=== PATIENT | male | born 1955 | race Caucasian/White ===

== ENCOUNTER 2019-01-21 18:17 | Inpatient (IN) | payer MEDICAID, SELFPAY ==
[~2019-01-21] VITALS: Ht 180.3 cm; Wt 92.7 kg
[2019-01-21 19:06] LABS: BASO # 0.1 10^3/uL (0.0-0.2); BASO % 0.8 % (0.0-1.0); EOS # 0.1 10^3/uL (0.0-0.50); EOS % 1.3 % (0.0-3.0); HEMATOCRIT 51.6 % (42.0-52.0); HEMOGLOBIN 17.2 g/dl (13.5-17.5); LYMPH # 1.4 10^3/uL (1.5-4.5); LYMPH % 19.7 % (24.0-44.0); MEAN CORPUSCULAR HEMOGLOBIN 30.1 pg (27.0-33.0); MEAN CORPUSCULAR HGB CONC 33.3 g/dl (32.0-36.5); MEAN CORPUSCULAR VOLUME 90.4 fl (80.0-96.0); MONO # 0.7 10^3/uL (0.0-0.8); NEUTROPHILS # 4.8 10^3/uL (1.8-7.7); NEUTROPHILS % 68.1 % (36.0-66.0); PLATELET COUNT, AUTOMATED 177 10^3/uL (150-450); RED BLOOD COUNT 5.71 10^6/uL (4.30-6.10); WHITE BLOOD COUNT 7.1 10^3/uL (4.0-10.0)
--- NOTE | 2019-01-21 19:08 | REP ---
Portable chest x-ray: Sitting AP view. History: Dyspnea and cough. No comparison study. Findings: EKG electrodes are seen. The heart is mildly to moderately enlarged. Pulmonary vasculature is slightly cephalized. There is slight blunting of the right lateral pleural angle. Fissural thickening is noted on the right. No infiltrate is seen. No evidence of pulmonary edema. Impression: Cardiomegaly with right pleural angle blunting and cephalization. CHF pattern. Electronically Signed by Alexsander Moscoso MD 01/21/2019 06:59 P
[2019-01-21] MEDS ORDERED: FUROSEMIDE 40 MG/4 ML VIAL (J1940) IV ONE (19:30)
[2019-01-21 19:36] LABS: INR 1.17; PROTHROMBIN TIME 14.6 SECONDS (11.8-14.0)
[2019-01-21 19:37] LABS: PARTIAL THROMBOPLASTIN TIME 29.7 SECONDS (25.0-38.4)
[2019-01-21 19:40] LABS: BLOOD UREA NITROGEN 23 MG/DL (7-18); CALCIUM LEVEL 9.3 MG/DL (8.8-10.2); CARBON DIOXIDE LEVEL 25 MEQ/L (21-32); CHLORIDE LEVEL 103 MEQ/L (98-107); CK-MB VALUE MASS 3.8 NG/ML (<3.6); CPK CREATINE PHOSPHOKINASE 148 U/L (39-308); CREATININE FOR GFR 1.12 MG/DL (0.70-1.30); GLOMERULAR FILTRATION RATE > 60.0 (>49); GLUCOSE, FASTING 105 MG/DL (70-100); MB/CK RELATIVE INDEX 2.57 (< OR =4); NT-PRO BNP 4077 PG/ML (<125); POTASSIUM SERUM 5.1 MEQ/L (3.5-5.1); SODIUM LEVEL 137 MEQ/L (136-145)
[2019-01-21] MEDS: METOPROLOL 5 MG/5 ML VIAL IV SCH ×3 (19:51→20:03)
--- NOTE | 2019-01-21 20:44 | REPVR ---
EXAM: US Duplex Bilateral Lower Extremity Veins EXAM DATE/TIME: 01/21/2019 7:48 PM CLINICAL HISTORY: 63 years old, male; Pain; Leg, upper; Bilateral; Additional info: Low ext edema R/O dvt TECHNIQUE: Imaging protocol: Real-time duplex ultrasound of the Bilateral Lower Extremities with 2-D rosenbaum scale, color Doppler flow and spectral waveform analysis with image documentation. Complete exam focused on the bilateral lower extremity veins. COMPARISON: No relevant prior studies available. FINDINGS: Right deep veins: Unremarkable. The common femoral, femoral, proximal profunda femoral and popliteal veins are patent without thrombus. Normal Doppler waveforms. Normal compressibility and/or augmentation response. Right superficial veins: Saphenofemoral junction is patent without thrombus. Left deep veins: Unremarkable. The common femoral, femoral, proximal profunda femoral and popliteal veins are patent without thrombus. Normal Doppler waveforms. Normal compressibility and/or augmentation response. Left superficial veins: Saphenofemoral junction is patent without thrombus. Soft tissues: Unremarkable. IMPRESSION: No evidence of deep venous thrombus in the bilateral lower extremities. Electronically signed by: Holly Mckeon On 01/21/2019 20:44:10 PM
[2019-01-21] MEDS ORDERED: MAALOX 30 ML SUSP *UDC PO PRN (21:00)
[2019-01-21] MEDS ORDERED: ACETAMINOPHEN TAB 650MG DOSE (2X325MG) PO PRN (21:00)
--- NOTE | 2019-01-21 21:13 | HPEPDOC ---
General Date of Admission 01/21/19 Date of Service: Jan 21, 2019 Attending Physician: KRISTEL WALLACE MD Chief Complaint The patient is a 63-year-old male admitted with a reason for visit of Fluid Rete ntion. Source: Patient, Other (. Girlfriend) Exam Limitations: No limitations Timing/Duration: Other (months) Severity: Moderate Associated Symptoms: Other History of Present Illness 63 years old, former with no known past medical history had never seen a doctor in the past, had developed increasing shortness of breath on exertion. Bilateral leg swelling and orthopnea since last few months, which is progressively getting worse. Patient denies chest pain, syncope or palpitations. Patient was found to have A. fib with RVR and acute heart failure, we were asked to admit patient for further workup Home Medications No Active Prescriptions or Reported Meds Allergies Coded Allergies: No Known Drug Allergies (Verified Allergy, Unknown, 01/21/19) Past Medical History Medical History None Surgical History None Social History * Smoker: Denies Alcohol: Denies Drugs: denies A-FIB/CHADSVASC A-FIB History Current/History of A-Fib/PAF?: Yes Current PO Anticoag Therapy: No Review of Systems Constitutional: Reports: Weakness Eyes: Denies: Pain, Vision change, Conjunctivae inflammation, Eyelid inflammation, Redness, Other ENT: Denies: Head Aches, Ear Pain, Dysphagia, Sinus Congestion, Post Nasal Drip, Sore Throat, Epistaxis, Other Symptoms Skin: Denies: Rash, Lesions, Jaundice, Bruising, Itching, Dry, Breakdown, Nail Changes, Other Pulmonary: Reports: Dyspnea, Other Symptoms (, orthopnea, dyspnea on exertion) Cardiovascular: Reports: Paroxysmal Noc. Dyspnea Gastrointestinal: Denies: Nausea, Vomiting, Abdominal Pain, Diarrhea, C onstipation, Melena, Hematochezia, Other Symptoms Genitourinary: Denies: Dysuria, Frequency, Incontinence, Hematuria, Retention, Other Symptoms Hematologic: Denies: Bruising, Bleeding Excessively, Petecchia, Purpura, Enlarged Lymph Nodes, Other Hematologic Endocrine: Denies: Polydipsia, Polyphagia, Polyuria, Heat Intolerance, Cold I ntolerance, Other Endocrine Sx Musculoskeletal: Denies: Neck Pain, Back Pain, Shoulder Pain, Arm Pain, Hand Pain, Leg Pain, Foot Pain, Joint Pain, Muscle Pain, Spasms, Other Symptoms Neurological: Denies: Weakness, Numbness, Incoordination, Change in speech, Confusion, Seizures, Other Symptoms Psych: Denies: Mood Normal, Anxiety, Depression, Memory Issues, Thoughts of Self Harm, Anger, Thoughts of Harming Other, Other Psych Physical Examination General Exam: Positive: Alert, Cooperative Eye Exam: Positive: PERRLA, Conjunctiva & lids normal ENT Exam: Positive: Atraumatic Neck Exam: Positive: Supple Chest Exam: Positive: Other (, bilateral crackles audible) Heart Exam: Positive: Tachycardic, Irregular Rhythm Telemetry: Positive: Atrial fibrillation Abdomen Exam: Positive: Normal bowel sounds, Soft Extremity Exam: Positive: Edema (. Bilateral pedal edema) Skin Exam: Negative: Nl turgor and temperature, Rash, Breakdown, Lesion, Pruritus, Other skin issue Neuro Exam: Negative: Normal Gait, Normal Speech, Strength at 5/5 X4 ext, Normal Tone, Sensation Intact, Cranial Nerves 3-12 NL, Reflexes 2+, Other Psych Exam: Negative: Mental status NL, Mood NL, Anxiety, Memory Intact, Oriented x 3, Other Vital Signs Vital Signs Date Time Temp Pulse Resp B/P (MAP) Pulse Ox O2 Delivery O2 Flow Rate FiO2 01/21/19 20:11 131 138/96 (110) 96 Room Air 01/21/19 20:00 16 01/21/19 18:18 97.8 Laboratory Data Labs 24H Laboratory Tests 2 01/21/19 18:57: Immature Granulocyte % (Auto) 0.1, White Blood Count 7.1, Red Blood Count 5.71, Hemoglobin 17.2, Hematocrit 51.6, Mean Corpuscular Volume 90.4, Mean Corpuscular Hemoglobin 30.1, Mean Corpuscular Hemoglobin Concent 33.3, Red Cell Distribution Width 13.3, Platelet Count 177, Neutrophils (%) (Auto) 68.1H, Lymphocytes (%) (Auto) 19.7L, Monocytes (%) (Auto) 10.0H, Eosinophils (%) (Auto) 1.3, Basophils (%) (Auto) 0.8, Neutrophils # (Auto) 4.8, Lymphocytes # (Auto) 1.4L, Monocytes # (Auto) 0.7, Eosinophils # (Auto) 0.1, Basophils # (Auto) 0.1, Nucleated Red Blood Cells % (auto) 0.0, Anion Gap 9, Glomerular Filtration Rate > 60.0, Blood Urea Nitrogen 23H, Creatinine 1.12, Sodium Level 137, Potassium Level 5.1, Chloride Level 103, Carbon Dioxide Level 25, Calcium Level 9.3, Total Creatine Kinase 148, Creatine Kinase MB 3.8H, Creatine Kinase MB Relative Index 2.57, Troponin I 0.10, PS-Zyw-T-Type Natriuretic Peptide 4077H, Thyroid Stimulating Hormone (TSH) 2.710 01/21/19 18:59: Prothrombin Time 14.6H, Prothromb Time International Ratio 1.17, Activated Partial Thromboplast Time 29.7 CBC/BMP Laboratory Tests 01/21/19 18:57 Red Blood Count 5.71, Mean Corpuscular Volume 90.4, Mean Corpuscular Hemoglobin 30.1, Mean Corpuscular Hemoglobin Concent 33.3, Red Cell Distribution Width 13.3, Neutrophils (%) (Auto) 68.1 H, Lymphocytes (%) (Auto) 19.7 L, Monocytes (%) (Auto) 10.0 H, Eosinophils (%) (Auto) 1.3, Basophils (%) (Auto) 0.8, Neutrop hils # (Auto) 4.8, Lymphocytes # (Auto) 1.4 L, Monocytes # (Auto) 0.7, Eosinophils # (Auto) 0.1, Basophils # (Auto) 0.1, Calcium Level 9.3, Total Creatine Kinase 148 Problems (1) Congestive heart failure (CHF) Status: Acute Problem Text: Admit to PCU for further care with telemetry Patient received 1 dose of Lasix in ED, I will continue Lasix 40 mg IV every 12 hours Coreg 3.125 mg by mouth twice a day Aspirin 81 mg by mouth daily Echocardiogram Serial troponin Cardiac profile in a.m. including fasting lipids BNP in a.m. Repeat EKG in a.m. Strict I and O's O2 support Rest with bathroom privileges DVT prophylaxis: Patient will be started on Lovenox for A. fib (2) Atrial fibrillation with rapid ventricular response Status: Acute Problem Text: Chronicity unknown, but will treat as a new onset A. fib Cardizem 30 mg by mouth daily at hour Telemetry monitoring O2 support Lovenox 1 mg pedal per kilogram every 12 hours Can be changed to by mouth anticoagulation once stable and heart rate is under control Plan / VTE VTE Prophylaxis Ordered?: Yes KRISTEL WALLACE MD Jan 21, 2019 21:13
[2019-01-21] MEDS: ENOXAPARIN 100MG/1ML SYRINGE (J1650) SC SCH (22:19)
[2019-01-21] MEDS: CARVedilol 3.125 MG TAB PO SCH (22:19)
[2019-01-21] MEDS: DOCUSATE SODIUM 100 MG CAP PO SCH (22:19)
[2019-01-22 00:22] LABS: CHOLESTEROL RISK RATIO 2.704 (<5)
[2019-01-22 04:45] VITALS: BP 140/84
[2019-01-22 04:53] LABS: HEMATOCRIT 45.7 % (42.0-52.0); MEAN CORPUSCULAR HEMOGLOBIN 29.5 pg (27.0-33.0); MEAN CORPUSCULAR HGB CONC 32.8 g/dl (32.0-36.5); MEAN CORPUSCULAR VOLUME 89.8 fl (80.0-96.0); PLATELET COUNT, AUTOMATED 141 10^3/uL (150-450); RED BLOOD COUNT 5.09 10^6/uL (4.30-6.10); WHITE BLOOD COUNT 6.7 10^3/uL (4.0-10.0)
[2019-01-22 05:17] LABS: ALT/SGPT 28 U/L (12-78); BILIRUBIN,TOTAL 1.4 MG/DL (0.2-1.0); BLOOD UREA NITROGEN 23 MG/DL (7-18); CALCIUM LEVEL 8.3 MG/DL (8.8-10.2); CARBON DIOXIDE LEVEL 28 MEQ/L (21-32); CHLORIDE LEVEL 104 MEQ/L (98-107); CHOLESTEROL LEVEL 99 MG/DL (<200); CHOLESTEROL RISK RATIO 2.475 (<5); GLOMERULAR FILTRATION RATE > 60.0 (>49); GLUCOSE, FASTING 87 MG/DL (70-100); HDL CHOLESTEROL 40 MG/DL (>40); LDL CHOLESTEROL 47 MG/DL (<100); NON-HDL-C 59 MG/DL; NT-PRO BNP 3364 PG/ML (<125); POTASSIUM SERUM 4.4 MEQ/L (3.5-5.1); SODIUM LEVEL 138 MEQ/L (136-145); TOTAL PROTEIN 6.6 GM/DL (6.4-8.2); TRIGLYCERIDES LEVEL 62 MG/DL (<150)
--- NOTE | 2019-01-22 07:49 | REP ---
Portable chest, 06:59 a.m., single AP view with the patient semi upright: Comparison is 01/21/2019. There is marked cardiomegaly, unchanged. The lung vargas are clear. The right costophrenic angle is excluded at the film margin. The antony, mediastinum, skeletal structures are unremarkable. Impression: Cardiomegaly. The right costophrenic angle is excluded at the film margin. Electronically Signed by Rico Dietrich MD 01/22/2019 07:41 A
[2019-01-22 08:00] VITALS: BP 130/80
[2019-01-22] MEDS: CARVedilol 3.125 MG TAB PO SCH ×2 (08:33→20:50)
[2019-01-22] MEDS: FUROSEMIDE 40 MG/4 ML VIAL (J1940) IV SCH ×2 (08:33→20:53)
[2019-01-22] MEDS: ASPIRIN 81 MG CHEW TABLET PO SCH (08:33)
[2019-01-22] MEDS: ENOXAPARIN 100MG/1ML SYRINGE (J1650) SC SCH (08:33)
[2019-01-22] MEDS: DOCUSATE SODIUM 100 MG CAP PO SCH ×2 (08:33→20:59)
[2019-01-22] MEDS ORDERED: SLF 3 ML SYR IV PRN (09:00)
[2019-01-22] MEDS ORDERED: ENOXAPARIN 40 MG/0.4 ML SYRINGE (J1650) SC SCH (09:00)
--- NOTE | 2019-01-22 09:25 | IPN ---
DATE: 01/22/2019 Kaden is seen in progressive care unit (PCU). He has no primary care provider. He is being seen while I am rounding for the hospitalist. He was admitted with atrial fibrillation of unknown duration with congestive heart failure (CHF). His history is that he has been having dyspnea on exertion, worse over the past month. He has had orthopnea for several months. He has perceived an erratic heartbeat. 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 He was told that he should seek medical care, which he then decided not to pursue. He was admitted with atrial fibrillation, rapid ventricular response of unknown duration, congestive heart failure with unknown ejection fraction. SOCIAL HISTORY: He does not smoke. He has a heavy alcohol intake, six to nine drinks per day, though he has reduced this in the last month to perhaps six a day. FAMILY HISTORY: Shows some coronary artery disease. PHYSICAL EXAMINATION: VITAL SIGNS: 140/84, pulse 132. GENERAL APPEARANCE: He is lying in bed. No distress. He is visiting with his girlfriend. He has jugular venous distention (JVD) present. HEART: Rapid regular rate and rhythm. 1/6 systolic ejection murmur. ABDOMEN: Soft, nontender. No masses. EXTREMITIES: He has 1+ peripheral edema. No clubbing or cyanosis. SKIN: Shows that over his left scapular area there is a large 1 cm irregularly bordered, dark pigmented lesion with variation of pigment (I pointed this out to the patient's significant other and made the patient and his significant other aware that this needs to be biopsied as an outpatient, as I strongly suspect that this could be melanoma and this was explained to them in lay terms). LABORATORIES: Potassium 4.1, creatinine 1.0, magnesium 2. His lipids were checked on admission and they were done 5 hours later and they are about the same. TSH is normal at 2.7. Troponins are flat. INR on admission was 1.17. IMPRESSION: 1. Atrial fibrillation with rapid ventricular response. His heart rate is not currently controlled. He is on diltiazem 30 mg every 8 hours and carvedilol 3.125 mg twice a day. We are waiting for his echocardiogram. If it shows depressed ejection fraction then the diltiazem should be discontinued and the patient should be managed with beta darrick and perhaps digoxin but not a calcium darrick. Anticoagulation is currently with Lovenox 100 mg every 12 hours, which I will discontinue in favor of Eliquis 5 mg twice a day. Echocardiogram is pending. Cardiology consultation with Dr. Mi has been ordered. 2. Congestive heart failure (CHF). He is on Lasix 40 mg every 12 hours. He had a net diuresis of about 1200 mL today, so we will continue this with close eye on his potassium and magnesium. 3. Heavy alcohol use. 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 I have ordered thiamine. He has reduced his alcohol intake and at this point there are no signs of withdrawal so I have not ordered any Serax, etc. Echocardiogram is pending. 4. Suspicious skin lesion. As noted above, he has a lesion over his left scapula that is suspicious for melanoma. The patient and his girlfriend are aware that this needs to be addressed after discharge, this is not an appropriate inpatient consultation for dermatology and both he and his girlfriend expressed understanding of the need to followup on this after he is discharged.
[2019-01-22] MEDS ORDERED: METOPROLOL 5 MG/5 ML VIAL IV STA ×2 (10:25→13:57)
[2019-01-22] MEDS: THIAMINE 100 MG TAB PO SCH (10:36)
[2019-01-22 12:00] VITALS: BP 130/72
[2019-01-22] MEDS: SLF 3 ML SYR IV SCH ×2 (14:00→22:04)
--- NOTE | 2019-01-22 15:06 | ECGEPIP ---
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 PVCs new and decreased heart rate compared with 01/21/2019 at 1850 hrs. Electronically Signed on 01-22-2019 15:06:19 EDT by Deandre Bone
[2019-01-22 16:00] VITALS: BP 110/78
[2019-01-22 20:00] VITALS: BP 115/65
[2019-01-22] MEDS: APIXABAN 5 MG TAB (ELIQUIS) PO SCH (20:47)
--- NOTE | 2019-01-22 20:56 | ECGEPIP ---
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
[2019-01-22 23:59] VITALS: BP 116/91
[2019-01-23 05:41] LABS: HEMATOCRIT 45.9 % (42.0-52.0); HEMOGLOBIN 15.3 g/dl (13.5-17.5); MEAN CORPUSCULAR HEMOGLOBIN 29.8 pg (27.0-33.0); MEAN CORPUSCULAR HGB CONC 33.3 g/dl (32.0-36.5); MEAN CORPUSCULAR VOLUME 89.3 fl (80.0-96.0); PLATELET COUNT, AUTOMATED 147 10^3/uL (150-450); RED BLOOD COUNT 5.14 10^6/uL (4.30-6.10); WHITE BLOOD COUNT 5.2 10^3/uL (4.0-10.0)
[2019-01-23] MEDS: SLF 3 ML SYR IV SCH ×3 (05:45→21:52)
[2019-01-23 06:14] LABS: BLOOD UREA NITROGEN 23 MG/DL (7-18); CALCIUM LEVEL 8.5 MG/DL (8.8-10.2); CARBON DIOXIDE LEVEL 31 MEQ/L (21-32); CHLORIDE LEVEL 103 MEQ/L (98-107); GLOMERULAR FILTRATION RATE > 60.0 (>49); GLUCOSE, FASTING 99 MG/DL (70-100); MAGNESIUM LEVEL 2.3 MG/DL (1.8-2.4); POTASSIUM SERUM 4.2 MEQ/L (3.5-5.1); SODIUM LEVEL 140 MEQ/L (136-145)
[2019-01-23 08:00] VITALS: BP 134/90
[2019-01-23] MEDS: APIXABAN 5 MG TAB (ELIQUIS) PO SCH ×2 (08:58→20:20)
[2019-01-23] MEDS: THIAMINE 100 MG TAB PO SCH (08:59)
[2019-01-23] MEDS: DOCUSATE SODIUM 100 MG CAP PO SCH ×2 (08:59→20:20)
[2019-01-23] MEDS: ASPIRIN 81 MG CHEW TABLET PO SCH (08:59)
[2019-01-23] MEDS: CARVedilol 3.125 MG TAB PO SCH (09:02)
[2019-01-23] MEDS: FUROSEMIDE 40 MG/4 ML VIAL (J1940) IV SCH ×2 (09:05→20:23)
[2019-01-23] MEDS ORDERED: POTASSIUM CHLORIDE 10 MEQ SR TABLET PO ONE (11:00)
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
[2019-01-23 12:00] VITALS: BP 126/82
[2019-01-23 16:00] VITALS: BP 141/95
[2019-01-23 20:00] VITALS: BP 133/87
[2019-01-23] MEDS: CARVedilol 6.25 MG TAB PO SCH (20:21)
[2019-01-23 23:59] VITALS: BP 137/88
[2019-01-24 04:00] VITALS: BP 135/90
[2019-01-24] MEDS: MOM 30ML SUSPENSION UDC PO PRN (04:06)
[2019-01-24 05:05] LABS: HEMATOCRIT 44.2 % (42.0-52.0); HEMOGLOBIN 14.7 g/dl (13.5-17.5); MEAN CORPUSCULAR HEMOGLOBIN 29.3 pg (27.0-33.0); MEAN CORPUSCULAR HGB CONC 33.3 g/dl (32.0-36.5); PLATELET COUNT, AUTOMATED 141 10^3/uL (150-450); RED BLOOD COUNT 5.02 10^6/uL (4.30-6.10); WHITE BLOOD COUNT 5.6 10^3/uL (4.0-10.0)
[2019-01-24 05:21] LABS: BLOOD UREA NITROGEN 22 MG/DL (7-18); CARBON DIOXIDE LEVEL 33 MEQ/L (21-32); CHLORIDE LEVEL 102 MEQ/L (98-107); CREATININE FOR GFR 1.14 MG/DL (0.70-1.30); GLOMERULAR FILTRATION RATE > 60.0 (>49); GLUCOSE, FASTING 124 MG/DL (70-100); POTASSIUM SERUM 3.9 MEQ/L (3.5-5.1); SODIUM LEVEL 141 MEQ/L (136-145)
[2019-01-24] MEDS: SLF 3 ML SYR IV SCH ×3 (06:10→22:56)
[2019-01-24 08:00] VITALS: BP 110/68
[2019-01-24] MEDS: APIXABAN 5 MG TAB (ELIQUIS) PO SCH ×2 (08:45→20:20)
[2019-01-24] MEDS: ASPIRIN 81 MG CHEW TABLET PO SCH (08:45)
[2019-01-24] MEDS: THIAMINE 100 MG TAB PO SCH (08:45)
[2019-01-24] MEDS: DOCUSATE SODIUM 100 MG CAP PO SCH ×2 (08:45→20:20)
[2019-01-24] MEDS: CARVedilol 6.25 MG TAB PO SCH ×2 (08:46→20:21)
[2019-01-24] MEDS: LISINOPRIL *2.5 MG* TAB PO SCH (08:47)
[2019-01-24] MEDS: FUROSEMIDE 40 MG/4 ML VIAL (J1940) IV SCH (08:49)
--- NOTE | 2019-01-24 09:11 | ECHO ---
DATE OF SERVICE: 01/22/2019 REFERRING PROVIDER: Olayinka Conroy MD PATIENT LOCATION: Room 3223. REASON FOR THE ECHOCARDIOGRAM: Congestive heart failure. 2D MEASUREMENTS: IVS: 1.2 cm LV: 6.0 cm LVPW: 1.2 cm LA: 5.1 cm Aorta: 3.5 cm RV: 3.7 cm DOPPLER MEASUREMENTS: Peak velocity across the aortic valve: 0.75 m/s Peak velocity across the LVOT: 0.68 m/s Mitral E: 0.76 Maximum tricuspid valve velocity: 3.0 m/s 2D COMMENTS: 1. Mildly enlarged left ventricle with normal left ventricular wall thickness, and left ventricular systolic function is depressed. The estimated global left ventricular systolic ejection fraction is 30% to 35%. 2. Moderately enlarged left atrium and right atrium. The right ventricle also appear to be mildly enlarged and hypokinetic. 3. The atrial septum appeared to be normal without evidence of defect or shunt. 4. Normal aortic root. 5. No pericardial effusion seen. 6. The aortic valve, mitral valve, and tricuspid valve appeared to be normal. The pulmonic valve also appeared to be normal. The proximal pulmonary artery branches were not well visualized. 7. Subjectively, the inferior vena cava appeared to be mildly enlarged. DOPPLER: It detects mild to moderate mitral regurgitation and mild to moderate tricuspid regurgitation. The calculated pulmonary artery systolic pressure varies between 40-50 mmHg. Assessment of the left ventricular diastolic function was limited in view of the underlying atrial fibrillation. IMPRESSION: 1. Moderate global left ventricular systolic dysfunction with diffuse hypokinesis and a mildly dilated left ventricle. Assessment of the ventricular diastolic function was limited in view of the underlying atrial fibrillation. 2. Mild to moderate mitral regurgitation with moderately dilated left atrium. 3. Mild to moderate tricuspid regurgitation with moderate pulmonary hypertension. The right heart chambers also appeared to be enlarged. Right ventricular systolic function also appeared to be mildly depressed. 4. Subjectively, the inferior vena cava/IVC appeared to be enlarged. Central venous pressure might be elevated.
[2019-01-24 12:00] VITALS: BP 100/60
[2019-01-24 16:00] VITALS: BP 100/80
[2019-01-24 20:00] VITALS: BP 147/75
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
[2019-01-24 23:59] VITALS: BP_SYST 120; BP_SYST 158; BP_DIAS 68; BP_DIAS 80
[2019-01-25 04:00] VITALS: BP 130/78
[2019-01-25 05:41] LABS: HEMOGLOBIN 15.2 g/dl (13.5-17.5); MEAN CORPUSCULAR HEMOGLOBIN 29.3 pg (27.0-33.0); MEAN CORPUSCULAR HGB CONC 32.3 g/dl (32.0-36.5); MEAN CORPUSCULAR VOLUME 90.6 fl (80.0-96.0); PLATELET COUNT, AUTOMATED 149 10^3/uL (150-450); RED BLOOD COUNT 5.19 10^6/uL (4.30-6.10)
[2019-01-25 06:07] LABS: BLOOD UREA NITROGEN 19 MG/DL (7-18); CALCIUM LEVEL 8.9 MG/DL (8.8-10.2); CARBON DIOXIDE LEVEL 31 MEQ/L (21-32); CHLORIDE LEVEL 104 MEQ/L (98-107); CREATININE FOR GFR 1.02 MG/DL (0.70-1.30); GLOMERULAR FILTRATION RATE > 60.0 (>49); GLUCOSE, FASTING 98 MG/DL (70-100); POTASSIUM SERUM 4.2 MEQ/L (3.5-5.1); SODIUM LEVEL 141 MEQ/L (136-145)
[2019-01-25] MEDS: SLF 3 ML SYR IV SCH ×3 (06:53→22:42)
[2019-01-25] MEDS: APIXABAN 5 MG TAB (ELIQUIS) PO SCH ×2 (08:09→20:49)
[2019-01-25] MEDS: ASPIRIN 81 MG CHEW TABLET PO SCH (08:09)
[2019-01-25] MEDS: DOCUSATE SODIUM 100 MG CAP PO SCH ×2 (08:09→20:49)
[2019-01-25] MEDS: THIAMINE 100 MG TAB PO SCH (08:09)
[2019-01-25] MEDS: LISINOPRIL *2.5 MG* TAB PO SCH (08:09)
[2019-01-25] MEDS: CARVedilol 6.25 MG TAB PO SCH ×2 (08:10→20:49)
--- NOTE | 2019-01-25 08:22 | IPN ---
DATE OF SERVICE: 01/24/2019 Mr. Dusty Dugan was seen on 01/23/2019 because of his atrial fibrillation and his congestive failure. He has been on AV blocking agents as well as anticoagulation therapy, and diuretics. He has been improving and his heart rate is under control. His heart failure has significantly improved. He denies any chest pain. He denies any bleeding. He has not been coughing. He underwent an echocardiogram and it revealed a moderately depressed global left ventricular systolic function with LVEF estimated at 30-35% with mild to moderate valvular heart disease involving the mitral valve and the tricuspid valve. His AV blocking agents were readjusted after the echocardiogram and he was started on LONA inhibitor. Today, when I saw him, he was sitting up in bed in no acute distress at rest and he stated he feels better. He is looking forward to go home, probably tomorrow 01/26/2019. PHYSICAL EXAMINATION: The patient is alert and oriented, in no acute distress at rest. His vital signs when I saw him earlier today revealed a blood pressure of 110/68 with a pulse that varies between 60 and 80 beats per minute, respirations 18-20 and his maximum temperature was 96.7 degrees Fahrenheit with an oxygen saturation of 98% on room air. He has a negative fluid balance of 1.6 liters for 01/23/2019. Examination of the head: Atraumatic. Neck: Neck is supple and no carotid bruits appreciated. Lungs: Did not reveal any wheezing or crackles. Heart examination revealed an irregular heart sound without gallops. The PMI is displaced inferiorly and laterally. There is no rub. Abdomen is unremarkable. Extremities revealed trace bilateral ankle edema. Neurologic examination was negative for focal deficits. LABS: CBC revealed WBC of 5.6, hemoglobin 14.7, hematocrit 44.2 and platelets 141,000. BMP revealed a sodium of 141, potassium 3.9, chloride 102, CO2 33, BUN 22, creatinine 1.14, GFR more than 60 fasting glucose 124 and calcium 9.0. Telemetry reviewed and revealed better controlled ventricular rate, atrial fibrillation. IMPRESSION: 1. Congestive heart failure, systolic in nature and recently diagnosed. 2. Atrial fibrillation, newly diagnosed and persistent. 3. History of hypertension. 4. History of EtOH abuse. Mr. Dusty Patel seems to be stable from a cardiac point of view on current meds and he will continue the same. If he remains stable, he may be discharged home tomorrow, 01/25/2019, and this was discussed with Dr. Conroy. I will see him in the office in about 1-2 weeks. He will benefit from a BMP in about a week in view of the LONA inhibitor to check the BUN, creatinine and serum potassium. Further workup will be done as an outpatient, looking for underlying CAD but, most likely this may be related to longstanding hypertension and his history of EtOH abuse.
[2019-01-25 08:43] VITALS: BP 150/100
[2019-01-25] MEDS ORDERED: FUROSEMIDE 20 MG TAB PO SCH (09:00)
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
[2019-01-25 12:29] VITALS: BP 142/70
[2019-01-25 16:00] VITALS: BP 137/75
[2019-01-25] MEDS: MOM 30ML SUSPENSION UDC PO PRN (17:42)
[2019-01-25] MEDS ORDERED: FUROSEMIDE 40 MG TAB PO ONE (19:00)
[2019-01-25 20:00] VITALS: BP 128/77
[2019-01-25 23:59] VITALS: BP 131/76
[2019-01-26 03:32] VITALS: BP 126/92
[2019-01-26 05:28] LABS: HEMATOCRIT 48.4 % (42.0-52.0); HEMOGLOBIN 15.6 g/dl (13.5-17.5); MEAN CORPUSCULAR HEMOGLOBIN 29.4 pg (27.0-33.0); MEAN CORPUSCULAR HGB CONC 32.2 g/dl (32.0-36.5); MEAN CORPUSCULAR VOLUME 91.3 fl (80.0-96.0); PLATELET COUNT, AUTOMATED 154 10^3/uL (150-450); WHITE BLOOD COUNT 5.1 10^3/uL (4.0-10.0)
[2019-01-26 05:49] LABS: BLOOD UREA NITROGEN 20 MG/DL (7-18); CALCIUM LEVEL 8.7 MG/DL (8.8-10.2); CARBON DIOXIDE LEVEL 32 MEQ/L (21-32); CHLORIDE LEVEL 103 MEQ/L (98-107); CREATININE FOR GFR 0.96 MG/DL (0.70-1.30); GLOMERULAR FILTRATION RATE > 60.0 (>49); GLUCOSE, FASTING 97 MG/DL (70-100); POTASSIUM SERUM 4.2 MEQ/L (3.5-5.1); SODIUM LEVEL 140 MEQ/L (136-145)
[2019-01-26] MEDS: SLF 3 ML SYR IV SCH (05:53)
[2019-01-26 08:00] VITALS: BP 160/90
[2019-01-26] MEDS: ASPIRIN 81 MG CHEW TABLET PO SCH (08:13)
[2019-01-26] MEDS: APIXABAN 5 MG TAB (ELIQUIS) PO SCH (08:14)
[2019-01-26] MEDS: THIAMINE 100 MG TAB PO SCH (08:14)
[2019-01-26 08:15] VITALS: BP 127/84
[2019-01-26] MEDS: DOCUSATE SODIUM 100 MG CAP PO SCH (08:15)
[2019-01-26] MEDS: CARVedilol 6.25 MG TAB PO SCH (08:15)
[2019-01-26] MEDS ORDERED: LISINOPRIL 5 MG TAB PO SCH (09:00)
[2019-01-26] MEDS ORDERED: FUROSEMIDE 40 MG TAB PO SCH (09:00)
[2019-01-26] MEDS ORDERED: LISI-542 PO (10:52)
[2019-01-26] MEDS ORDERED: FURO40TA2 PO (10:52)
[2019-01-26] MEDS ORDERED: CARV6.25 PO (10:52)
[2019-01-26] MEDS ORDERED: ASPI81CH8 PO (10:52)
[2019-01-26] MEDS ORDERED: ELIQ5TAB PO (10:52)
--- NOTE | 2019-01-27 07:17 | DS.PDOC ---
Discharge Summary General Date of Admission Jan 21, 2019 at 20:57 Date of Discharge 01/26/2019 Attending Physician: JOANNE CALDWELL MD Specialist/Consultants Involve: A Specialist/Consultants Involve cardiology Discharge Summary PROCEDURES PERFORMED DURING STAY: None. ADMITTING DIAGNOSES: 1. CHF exacerbation 2. afib with RVR DISCHARGE DIAGNOSES: 1. CHF exacerbation 2. afib with RVR 3. HTN 4. Suspicious back lesion COMPLICATIONS/CHIEF COMPLAINT: Atrial Fibrillation With Rapid Ventricular Respons. HISTORY OF PRESENT ILLNESS: As per admission H&P: "63 years old, former with no known past medical history had never seen a doctor in the past, had developed increasing shortness of breath on exertion. Bilateral leg swelling and orthopnea since last few months, which is progressively getting worse. Patient denies chest pain, syncope or palpitations. Patient was found to have A. fib with RVR and acute heart failure, we were asked to admit patient for further workup" HOSPITAL COURSE: PT diuresed with lasix. Pt started on carvedilol and dilt for rate control, lovenox for afib. echo showed EF 30-35% cardiology consulted. pt taken off dilt and remained on carvedilol. Pt had good rate control response. Pt transitioned to Eliquis for snf PPX. Patient diuresed well. Patient seen, examined and discharged and deemed stable. Patient denies any fevers, chills, chest pain, difficulty breathing, nausea, vomiting, diarrhea, leg pain. DISCHARGE MEDICATIONS: Please see below. ALLERGIES: Please see below. PHYSICAL EXAMINATION ON DISCHARGE: VITAL SIGNS: Please see below. GENERAL: male ambulating about room in NAD CARDIOVASCULAR EXAMINATION: irregularly irregular, normal rate RESPIRATORY EXAMINATION: CTA b/l ABDOMINAL EXAMINATION: soft, nontender, nondistended EXTREMITIES: trace edema b/l LE improved from prior NEUROLOGICAL EXAMINATION: no focal deficits PSYCHIATRIC EXAMINATION: normal mental status LABORATORY DATA: Please see below. PROGNOSIS: Good assuming follow up with PMD and cardiology as instructed. Pt also to follow up with dermatology as outpatient for possible melanoma ACTIVITY: As tolerated. DIET: cardiac diet DISCHARGE PLAN: Patient discharged home with cardiology and PMD follow-up. She did follow with dermatology for possible melanoma DISPOSITION: Home, Self-Care. DISCHARGE INSTRUCTIONS: 1. Please follow up with her primary care doctor 2. Please follow-up with cardiology 3. Please follow with dermatology ITEMS TO FOLLOWUP ON ON OUTPATIENT: 1. possible melanoma DISCHARGE CONDITION: Stable. TIME SPENT ON DISCHARGE: 35 minutes. Vital Signs/I&Os Vital Signs Date Time Temp Pulse Resp B/P (MAP) Pulse Ox O2 Delivery O2 Flow Rate FiO2 01/26/19 08:15 101 127/84 01/26/19 08:00 97.6 18 98 01/22/19 00:46 Room Air I&O- Last 24 Hours up to 6 AM 01/27/19 05:59 Intake Total 540 ml Output Total 350 ml Balance 190 ml Discharge Medications Scheduled Apixaban (Eliquis) 5 Mg Tablet, 5 MG PO BID Aspirin (Children's Aspirin) 81 Mg Tab.chew, 81 MG PO DAILY Carvedilol (Carvedilol) 6.25 Mg Tablet, 6.25 MG PO Q12H Furosemide (Furosemide) 40 Mg Tablet, 40 MG PO DAILY Lisinopril (Lisinopril) 5 Mg Tablet, 5 MG PO DAILY Allergies Coded Allergies: No Known Drug Allergies (Verified Allergy, Unknown, 01/21/19) JOANNE CALDWELL MD Jan 27, 2019 07:17
== END 2019-01-26 14:39 | disposition home or self-care (01) | DRG 201 ==
LOC: M ED 18:17 → M PCU 20:32 → UNDOADMIN 20:32 → M ED INP 20:47 → M PCU 20:57 → M ED INP 01-22 01:15 → M PCU 01-22 06:21 → UNDOADMIN 01-22 06:21 → M PCU 01-25 20:47 → UNDODISIN 01-26 14:39
PROVIDERS: ADMIT Internal Medicine; ATTEND Internal Medicine
DX: I48.91 Unspecified atrial fibrillation (principal); I50.23 Acute on chronic systolic (congestive) heart failure; I11.0 Hypertensive heart disease with heart failure; F10.10 Alcohol abuse, uncomplicated; L98.9 Disorder of the skin and subcutaneous tissue, unspecified

== ENCOUNTER 2019-09-04 15:32 | Inpatient (IN) | payer MEDICAID, OTHER ==
[~2019-09-04] VITALS: Ht 180.3 cm; Wt 94.7 kg
[~2019-09-04 15:32] MED LIST: ASPI81CH8 PO; CARV6.25 PO; ELIQ5TAB PO; FURO40TA2 PO; LISI-542 PO
[2019-09-04] MEDS ORDERED: CARV12.5 PO (15:47)
[2019-09-04] MEDS ORDERED: CARV6.25 PO (15:47)
[2019-09-04] MEDS ORDERED: LASI40TA9 PO (15:47)
[2019-09-04] MEDS ORDERED: LISI10TA4 PO (15:47)
[2019-09-04 16:18] LABS: BASO % 0.4 % (0.0-1.0); EOS # 0.1 10^3/uL (0.0-0.5); EOS % 1.5 % (0.0-3.0); HEMATOCRIT 44.4 % (42.0-52.0); HEMOGLOBIN 14.8 g/dl (13.5-17.5); LYMPH # 1.5 10^3/uL (1.5-5.0); LYMPH % 18.2 % (24.0-44.0); MEAN CORPUSCULAR HEMOGLOBIN 29.9 pg (27.0-33.0); MEAN CORPUSCULAR HGB CONC 33.3 g/dl (32.0-36.5); MEAN CORPUSCULAR VOLUME 89.7 fl (80.0-96.0); MONO # 0.8 10^3/uL (0.0-0.8); MONO % 9.7 % (0.0-5.0); NEUTROPHILS # 5.6 10^3/uL (1.5-8.5); NEUTROPHILS % 70.1 % (36.0-66.0); PLATELET COUNT, AUTOMATED 195 10^3/uL (150-450); RED BLOOD COUNT 4.95 10^6/uL (4.30-6.10)
[2019-09-04 16:40] LABS: BLOOD UREA NITROGEN 23 MG/DL (7-18); CALCIUM LEVEL 8.9 MG/DL (8.8-10.2); CARBON DIOXIDE LEVEL 26 MEQ/L (21-32); CHLORIDE LEVEL 102 MEQ/L (98-107); CK-MB VALUE MASS 2.4 NG/ML (<3.6); CPK CREATINE PHOSPHOKINASE 140 U/L (39-308); CREATININE FOR GFR 1.05 MG/DL (0.70-1.30); GLOMERULAR FILTRATION RATE > 60.0 (>49); GLUCOSE, FASTING 102 MG/DL (70-100); MB/CK RELATIVE INDEX 1.71 (< OR =4); POTASSIUM SERUM 4.3 MEQ/L (3.5-5.1); SODIUM LEVEL 135 MEQ/L (136-145); TROPONIN I < 0.02 NG/ML (< 0.10)
[2019-09-04] MEDS ORDERED: ONDANSETRON 4MG/2ML VIAL (J2405) IV ONE (16:45)
[2019-09-04] MEDS ORDERED: PANTOPRAZOLE 40MG INJ (PROTONIX) (C9113) IV ONE (16:45)
[2019-09-04] MEDS ORDERED: ISOVUE-370 76% 100ML VIAL (Q9967) As Ordered ONE (16:57)
[2019-09-04] MEDS ORDERED: CARVedilol 12.5 MG TAB PO ONE (17:00)
[2019-09-04] MEDS ORDERED: NS 1,000 ML IV ONE (17:00)
[2019-09-04 17:13] LABS: INR 1.25; PROTHROMBIN TIME 15.4 SECONDS (11.8-14.0)
[2019-09-04 17:14] LABS: PARTIAL THROMBOPLASTIN TIME 29.9 SECONDS (25.0-38.4)
--- NOTE | 2019-09-04 18:00 | ECGEPIP ---
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
--- NOTE | 2019-09-04 18:24 | REPVR ---
PROCEDURE INFORMATION: Exam: CT Abdomen And Pelvis With Contrast Exam date and time: 09/04/2019 5:36 PM Age: 64 years old Clinical indication: Abdominal pain; Epigastric; Additional info: Epigastric pain; Bloody emesis TECHNIQUE: Imaging protocol: Computed tomography of the abdomen and pelvis with intravenous contrast. Radiation optimization: All CT scans at this facility use at least one of these dose optimization techniques: automated exposure control; mA and/or kV adjustment per patient size (includes targeted exams where dose is matched to clinical indication); or iterative reconstruction. Contrast material: ISOVUE 370; Contrast volume: 100 ml; Contrast route: IV; COMPARISON: No relevant prior studies available. FINDINGS: Lungs: No significant lesions of the lung bases. Mediastinum: There is a hiatal hernia with thickening and edema of the distal esophagus and proximal gastric wall within the hernia. Liver: There is a diffuse decrease in hepatic parenchymal density, consistent with fatty infiltration. Gallbladder and bile ducts: The gallbladder is normal. Pancreas: The pancreas is normal. Spleen: The spleen is normal. Adrenals: Normal. No mass. Kidneys and ureters: No hydronephrosis or renal calculi. There may be mild scarring of the right renal parenchyma. There is minimal bilateral perinephric stranding. Stomach and bowel: There is no evidence of intestinal obstruction. Appendix: A normal appendix is identified. Intraperitoneal space: Unremarkable. No free air. No significant fluid collection. Vasculature: The aorta is normal. Lymph nodes: Multiple subcentimeter lymph nodes are seen in the root of the mesentery. Bladder: The bladder is unremarkable. Reproductive: Unremarkable as visualized. Bones/joints: Skeletal degeneration. Soft tissues: There is a fat-containing umbilical hernia. IMPRESSION: There is thickening of the distal wall of the esophagus series 203, image 65 and the herniated portion of the stomach without further acute findings. There is scarring of the right renal cortex possibly due to prior infarction or infection. Electronically signed by: Lily Shi On 09/04/2019 18:24:01 PM
--- NOTE | 2019-09-04 20:03 | HPEPDOC ---
[facility] Medical History & Physical Date of Admission Sep 04, 2019 Date of Service: Sep 04, 2019 Primary Care Physician: A Attending Physician: BEN PAREDES MD History and Physical TIME OF SERVICE: 8:45 PM CHIEF COMPLAINT: Bloody emesis HISTORY OF PRESENT ILLNESS: This is a 64-year-old male who presents with complaints of dark brown emesis yesterday that progressed to bright red emesis today. Associated symptoms include epigastric, nonradiating abdominal pressure which he rates as 2/10 in severity. He denies having fevers, chills, chest pain, shortness breath, or dizziness. He also has episodes of relapsing remitting palpitations (atrial fibrillation); he denies missing any doses of medications, but attributes the episodes of rapid A. fib. 2, to drinking alcohol. His last drink was this evening prior to arrival in the ER; He denies having seizures in the past when h e doesn't drink. REVIEW OF SYSTEMS: 12 point review of systems negative except as listed in HPI PAST MEDICAL/ SURGICAL HISTORY: Chronic systolic CHF, EF 30% Atrial fibrillation on Elquis Chronic hypertension. He denies having a CVA or TIA SOCIAL HISTORY: He doesn't smoke He drinks daily FAMILY HISTORY: CAD Diabetes He denies having a family history of stomach problems or liver problems. ALLERGIES: Please see below. HOME MEDICATIONS: Please see below. PHYSICAL EXAMINATION: Vital Signs Date Time Temp Pulse Resp B/P (MAP) Pulse Ox O2 Delivery O2 Flow Rate FiO2 09/04/19 15:33 97.3 60 18 162/105 (124) 98 Room Air GEN: well-nourished / well developed/ NAD INTEGUMENT: not flushed/ not jaundice HEENT: NCAT / lips acyanotic /mucus membranes moist and pink / sclera anicteric CVS: RRR/NMRG/ no JVP / radial pulses intact / no lower extremity edema LUNGS: clear to auscultation bilaterally on room air ABDOMEN: Contour (flat,) / abdomen is tympanic on percussion, soft & not te nder with palpation MSK/EXTREMITIES: range of motion intact in all 4 extremities NEURO: CN 2-12 are grossly intact / speech is not dysarthric PSYCH: alert and oriented to person place and time/ able to understand and follow all commands LABORATORY DATA: IMAGING: Chest x-ray shows cardiomegaly, but the final read is pending. CT of the abdomen and pelvis " IMPRESSION: There is thickening of the distal wall of the esophagus series 203, image 65 and the herniated portion of the stomach without further acute findings. There is scarring of the right renal cortex possibly due to prior infarction or infection." MICROBIOLOGY: Please see below. ASSESSMENT: Mr. Patel is a 64-year-old male with a past medical history of chronic systolic CHF, atrial fibrillation, chronic hypertension, and alcohol abuse who is admitted for management of upper GI bleed and rapid A. fib. PLAN: 1. GI Bleed (Upper) May be due to: PUD, esophageal, gastric or duodenal varicies, alcohol related erosive gastritis, portal hypertensive gastropathy, angiodysplasia, idiopathic,stomach CA, OR erosive esophagitis Kenney-Blatchford Score to identify low risk UGIB = 6 points = high risk bleed = likely requires intervention Rockall Score (pre-endoscopy) to determine severity of GIB = 3 points = 11% mortality prior to scope Plan: admit to ICU/check orthostats/IV PPI / Octreotide drip / ciprofloxacin / f/u serial hemoglobin, type and screen and H pylori / hold aspirin and Elquis / GI consult for EGD +/-c-scope / Zofran 2. Rapid Atrial Fibrillation Likely due to alcohol abuse His troponin, potassium and calcium are within normal limits CHADS VASC Score to determine risk of stroke = 3 points = candidate for AC HAS BLED Score to determine risk of bleeding in pts on AC = 4 points = high risk for bleeding Plan: telemetry / rate control w Cardizem drip / anticoagulant on hold because of GI bleed / he is aware that he needs to stop drinking / follow-up serial troponin, BNP, Mag and TSH / post endscopy the day time team may dicuss the risks vs benefits of AC and reinforce the imporance of abstinece from drinking 3. Alcohol Abuse His serum ethanol is within normal limits Plan: telemetry / seizure precautions / fall precautions / Thiamine & Folic acid / IVF / Zofran PRN for n/v /social work consult for referral to AA or other local support group 4. Chronic systolic CHF, EF 30% Currently is clinically compensated. Chest x-ray doesn't show congestion Plan:f/u Is/OS, daily weights, BNP / c/w carvedilol, lisinopril and Lasix 5. Chronic hypertension - Plan: c/w carvedilol, lisinopril and Lasix DVT PROPHYLAXIS: SCDs because of GI bleed DISPOSITION: Home after more than 2 midnight's stay Vital Signs Home Medications Scheduled Aspirin (Aspir 81) 81 Mg Tablet.dr, 81 MG PO DAILY Carvedilol (Carvedilol) 6.25 Mg Tablet, 6.25 MG PO QAM Carvedilol (Carvedilol) 12.5 Mg Tablet, 12.5 MG PO QHS Furosemide (Lasix) 40 Mg Tablet, 40 MG PO 3XW FRIDAY, FRIDAY AND FRIDAY Lisinopril (Lisinopril) 10 Mg Tablet, 10 MG PO QHS Pantoprazole Sodium (Pantoprazole Sodium) 40 Mg Tablet.dr, 40 MG PO BID 1/2 hour breakfast and 3 hours after dinner Allergies Coded Allergies: No Known Drug Allergies (Verified Allergy, Unknown, 01/21/19) A-FIB/CHADSVASC A-FIB History Current/History of A-Fib/PAF?: No Current PO Anticoag Therapy: No BEN PAREDES MD Sep 04, 2019 20:03
[2019-09-04] MEDS ORDERED: NS 1,000 ML IV SCH (20:04)
[2019-09-04 20:15] LABS: BASO % 0.4 % (0.0-1.0); EOS # 0.2 10^3/uL (0.0-0.5); EOS % 1.9 % (0.0-3.0); HEMOGLOBIN 13.3 g/dl (13.5-17.5); LYMPH # 1.5 10^3/uL (1.5-5.0); LYMPH % 19.9 % (24.0-44.0); MEAN CORPUSCULAR HEMOGLOBIN 30.9 pg (27.0-33.0); MEAN CORPUSCULAR HGB CONC 34.1 g/dl (32.0-36.5); MEAN CORPUSCULAR VOLUME 90.7 fl (80.0-96.0); MONO # 0.9 10^3/uL (0.0-0.8); NEUTROPHILS # 5.1 10^3/uL (1.5-8.5); NEUTROPHILS % 66.5 % (36.0-66.0); PLATELET COUNT, AUTOMATED 165 10^3/uL (150-450); WHITE BLOOD COUNT 7.7 10^3/uL (4.0-10.0)
[2019-09-04] MEDS ORDERED: ONDANSETRON 4MG/2ML VIAL (J2405) IV PRN (20:15)
[2019-09-04] MEDS ORDERED: ASPI81TA85 PO (20:22)
[2019-09-04] MEDS ORDERED: ELIQ5TAB PO (20:22)
[2019-09-04] MEDS: CIPROFLOXACIN 400 MG in IV 1 EA IV SCH (20:57)
[2019-09-04] MEDS: PANTOPRAZOLE 40MG INJ (PROTONIX) (C9113) IV SCH (20:57)
[2019-09-04] MEDS ORDERED: diltiaZEM 125 MG in NS 100 ML IV SCH (21:00)
[2019-09-04] MEDS: OCTREOTIDE ACETATE 100 MCG/ML VIAL (J2354) IV SCH (21:00)
[2019-09-05] VITALS (24 sets, daily range): BP systolic 106–144; BP diastolic 61–99
[2019-09-05] MEDS: lisinopriL 10 MG TAB PO SCH ×2 (01:35→21:19)
[2019-09-05] MEDS ORDERED: diltiaZEM 125 MG in NS 100 ML IV SCH (02:14)
[2019-09-05 03:40] LABS: HEMATOCRIT 39.5 % (42.0-52.0); HEMOGLOBIN 13.2 g/dl (13.5-17.5); MEAN CORPUSCULAR HEMOGLOBIN 30.6 pg (27.0-33.0); MEAN CORPUSCULAR HGB CONC 33.4 g/dl (32.0-36.5); MEAN CORPUSCULAR VOLUME 91.4 fl (80.0-96.0); PLATELET COUNT, AUTOMATED 156 10^3/uL (150-450); RED BLOOD COUNT 4.32 10^6/uL (4.30-6.10); WHITE BLOOD COUNT 5.5 10^3/uL (4.0-10.0)
[2019-09-05 03:51] LABS: INR 1.22; PROTHROMBIN TIME 15.2 SECONDS (11.8-14.0)
[2019-09-05 03:52] LABS: ALBUMIN 3.3 GM/DL (3.2-5.2); ALT/SGPT 19 U/L (12-78); BILIRUBIN,TOTAL 0.9 MG/DL (0.2-1.0); BLOOD UREA NITROGEN 20 MG/DL (7-18); CARBON DIOXIDE LEVEL 29 MEQ/L (21-32); CHLORIDE LEVEL 104 MEQ/L (98-107); CREATININE FOR GFR 0.98 MG/DL (0.70-1.30); GLOMERULAR FILTRATION RATE > 60.0 (>49); GLUCOSE, FASTING 114 MG/DL (70-100); POTASSIUM SERUM 4.7 MEQ/L (3.5-5.1); SODIUM LEVEL 138 MEQ/L (136-145); TOTAL PROTEIN 6.9 GM/DL (6.4-8.2)
[2019-09-05 04:11] LABS: THYROID STIMULATING HORMONE 0.568 uIU/ML (0.358-3.740); TROPONIN I 0.03 NG/ML (< 0.10)
[2019-09-05] MEDS: OCTREOTIDE ACETATE 100 MCG/ML VIAL (J2354) IV SCH ×3 (05:02→21:19)
[2019-09-05] MEDS: CIPROFLOXACIN 400 MG in IV 1 EA IV SCH ×2 (07:50→21:19)
[2019-09-05] MEDS: THIAMINE HCL 200 MG/2 ML VIAL (J3411) IV SCH (07:51)
[2019-09-05] MEDS: PANTOPRAZOLE 40MG INJ (PROTONIX) (C9113) IV SCH ×2 (07:51→21:19)
[2019-09-05] MEDS: CARVedilol 6.25 MG TAB PO SCH (07:51)
--- NOTE | 2019-09-05 08:11 | REP ---
CHEST, SINGLE VIEW: Single view of the chest is performed and compared to prior study of 01/22/2019. There is mild cardiomegaly. No acute infiltrate or pulmonary edema is seen. Mediastinal silhouette is unchanged. IMPRESSION: Mild cardiomegaly. No acute infiltrate. Electronically Signed by Rico Pedro MD 09/05/2019 06:08 P
--- NOTE | 2019-09-05 08:59 | CR.PDOC ---
General Date of Consultation: Sep 05, 2019 Referring Provider: CHELSEA JACOME MD Attending Physician: PEYTON WONG MD Consultation Primary physician/ hospitalist: -Dr. Chelsea Jacome, Reason for consult: Hematemesis HPI: 64-year-old male patient with HTN, CHF, atrial fibrillation on Eliquis (last dose yesterday morning), presented to ER for complaints of at least few episodes of vomiting of bright red blood. GI was consulted for the same. Patient reports having upper abdominal pain, mild intensity, associated with cough and intermittent vomiting/retching, and yesterday, patient noted bright red blood in the vomit, moderate amount, at least 2-3 episodes. Patient denies any further ep isodes of vomiting blood since he is in the emergency room. In also has dark brown stools, but no diarrheal stools.. Patient denies any prior episodes of similar vomiting. Pertinent negative GI symptoms: Patient denies fever, sick contacts, recent travel, diarrhea, loss of appetite, early satiety or unintentional weight loss. Patient reports regular bowel movements. Review of Systems: GI: as stated above CVS: No chest pain, No palpitations, No leg swelling. RS: No Shortness of breath, No Wheezing, has cough lately, and brings up whitish phlegm. 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 Skin: No rash : No hematuria, No burning sensation of the urine ENT: No ear discharge/ pain, No dysphagia. Eyes: No photophobia. Jaundice Home medications: reviewed. Antithrombotic agents: -On Eliquis, last dose yesterday morning. Medical h/o: As above. Surgical h/o: None on abdomen. Social h/o: Alcohol: -Drinks around 1-5 beers depending on the day for many years, smoking:. Denies, IVDA/ drugs:, Denies. Family h/o of GI cancers - None Prior Endoscopies: None in the past. Prior GI evaluations: -None in [facility] Exam: Vitals: reviewed. Intermittent rapid, regular rate but stable blood pressure. General: Alert and oriented x 3, not in distress HEENT: No pallor, no icterus. Normal oropharynx, NO cervical lymph nodes. Chest: symmetric with bilateral clear air entry, CVS: S1, S2 heard, normal, no murmurs . Abdomen: non-distended, no surgical scars, soft, non-tender, no palpable masses, normal bowel sounds heard. Rectal exam: Patient refused / Deferred at this time. Extremities: no pedal edema, pulses palpable. 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 Moves all extremities Skin: no rash. Labs: reviewed. Imaging: reviewed. CT images reviewed. Impression: -Acute onset nausea, vomiting with hematemesis, and associated mild epigastric abdominal pain in a patient with atrial fibrillation on anticoagulation with Eliquis -- DDx-- GERD with esophagitis vs MWT vs PUD vs rule out esophageal cancer ( CT images reviewed) Recommendations: - Patient educated about the test results, possible differential diagnoses and All questions answered. - NPO for now. - IV PPI ( prefer pantoprazole 40 mg IV twice daily for now). - Monitor hemoglobin and hematocrit, and transfuse if needed. - If not contraindicated to hold Eliquis for now. - Will schedule for urgent EGD today. - The procedure, indications, risks (bleeding, perforation, infection, hypotension, respiratory depression, allergy, need for endotracheal intubation, surgery, colostomy, cardiac arrest, even ), benefits, limitations (e.g., missing a lesion), and all other alternatives (including no intervention) were explained to the patient who understood and agreed for the procedure. - Post procedure recommendations as per the operative note. Addendum post EGD: -- Patient is noted to have Esophageal ulcerated mass, likely malignant. -- As per patient request reviewed the findings with his girlfriend. All questions answered. -- Please follow the recommendations as per the operative note. -- Will advance diet as tolerated. Plan of care discussed with patient and primary team. Patient verbalized understanding and agreed with the plan. Vital Signs/I&O Vital Signs Date Time Temp Pulse Resp B/P (MAP) Pulse Ox O2 Delivery O2 Flow Rate FiO2 09/05/19 07:51 84 135/92 09/05/19 04:30 97.9 16 96 Room Air I&O- Last 24 Hours up to 6 AM 09/05/19 06:00 Intake Total 1352 ml Balance 1352 ml Laboratory Data CBC/BMP Laboratory Tests 09/04/19 16:00 09/04/19 20:04 09/04/19 20:46 09/05/19 03:16 Allergies Coded Allergies: No Known Drug Allergies (Verified Allergy, Unknown, 01/21/19) Home Medications Scheduled Apixaban (Eliquis) 5 Mg Tablet, 5 MG PO BID, (Reported) Aspirin (Aspir 81) 81 Mg Tablet.dr, 81 MG PO DAILY, (Reported) Carvedilol (Carvedilol) 6.25 Mg Tablet, 6.25 MG PO QAM, (Reported) Carvedilol (Carvedilol) 12.5 Mg Tablet, 12.5 MG PO QHS, (Reported) Furosemide (Lasix) 40 Mg Tablet, 40 MG PO 3XW, (Reported) FRIDAY, FRIDAY AND FRIDAY Lisinopril (Lisinopril) 10 Mg Tablet, 10 MG PO QHS, (Reported) PEYTON WONG MD Sep 05, 2019 08:59
[2019-09-05] MEDS ORDERED: fentaNYL 100 MCG/2 ML INJECTION (J3010) As Ordered ONE (09:13)
[2019-09-05] MEDS ORDERED: propofoL 200 MG/20 ML VIAL As Ordered ONE (09:13)
[2019-09-05] MEDS ORDERED: LIDOCAINE 2% INJ 100 MG/5 ML SDV (FOR ANES.) As Ordered ONE (09:13)
--- NOTE | 2019-09-05 09:28 | ROOR ---
Patient Name: Dusty Patel Procedure Date: 09/05/2019 7:58 AM Date of : 1955 Age: 64 Gender: Male Note Status: Finalized Procedure: Upper GI endoscopy Indications: Hematemesis Providers: Tin Fernandez MD Referring MD: Chelsea Jacome Md Requesting Provider: Medicines: Monitored Anesthesia Care Complications: No immediate complications. Procedure: Pre-Anesthesia Assessment: - Prior to the procedure, a History and Physical was performed, and patient medications and allergies were reviewed. The patient is competent. The risks and benefits of the procedure and the sedation options and risks were discussed with the patient. All questions were answered and informed consent was obtained. Patient identification and proposed procedure were verified by the physician, the nurse and the anesthesiologist in the procedure room. Mental Status Examination: alert and oriented. CV Examination: normal. Prophylactic Antibiotics: The patient does not require prophylactic antibiotics. Prior Anticoagulants: The patient has taken Eliquis (apixaban), last dose was 1 day prior to procedure. ASA Grade Assessment: II - A patient with mild systemic disease. After reviewing the risks and benefits, the patient was deemed in satisfactory condition to undergo the procedure. The anesthesia plan was to use monitored anesthesia care (MAC). Immediately prior to administration of medications, the patient was re-assessed for adequacy to receive sedatives. The heart rate, respiratory rate, oxygen saturations, blood pressure, adequacy of pulmonary ventilation, and response to care were monitored throughout the procedure. The physical status of the patient was re-assessed after the procedure. The Endoscope was introduced through the mouth, and advanced to the second part of duodenum. The upper GI endoscopy was accomplished without difficulty. The patient tolerated the procedure well. Findings: A large, fungating and ulcerating mass with no bleeding and stigmata of recent bleeding was found in the distal esophagus, 39 to 45 cm from the incisors. The mass was non-obstructing and partially circumferential (involving one-half of the lumen circumference). Biopsies were taken with a cold forceps for histology. Verification of patient identification for the specimen was done by the physician and nurse using the patient's name, date and medical record number. Estimated blood loss was minimal. No gross lesions were noted in the entire examined stomach. The duodenal bulb and second portion of the duodenum were normal. 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 Biopsied. - No gross lesions in the stomach. - Normal duodenal bulb and second portion of the duodenum. Recommendation: - Patient has a contact number available for emergencies. The signs and symptoms of potential delayed complications were discussed with the patient. Return to normal activities tomorrow. Written discharge instructions were provided to the patient. - Clear liquid diet for 1 day, then advance as tolerated to chopped diet. - Continue present medications. - Use Protonix (pantoprazole) 40 mg PO twice daily - to be taken in morning (1/2 hour before breakfast) and at bedtime ( atleast 3 hours after last meal) for 3 months. - Resume Eliquis (apixaban) at prior dose after the pathology results are reviewed and based on oncology evaluation. Refer to primary physician for further adjustment of therapy. - Repeat upper endoscopy in 6 months depending on the symptoms and clinical response. - Telephone GI clinic for pathology results in 1 week. - Return to primary care physician. Tin Fernandez MD Tin Fernandez MD 09/05/2019 9:27:33 AM Electronically signed by Tin Fernandez MD Number of Addenda: 0 Note Initiated On: 09/05/2019 7:58 AM Estimated Blood Loss: Estimated blood loss was minimal.
[2019-09-05] MEDS ORDERED: LR 1,000 ML IV SCH (09:30)
[2019-09-05] MEDS ORDERED: ONDANSETRON 4MG/2ML VIAL (J2405) IV PRN (09:30)
[2019-09-05] MEDS: FOLIC ACID 1 MG in NS 50 ML IV SCH (10:58)
[2019-09-05] MEDS ORDERED: CARVedilol 12.5 MG TAB PO SCH (21:00)
[2019-09-06] VITALS (7 sets, daily range): BP systolic 110–158; BP diastolic 72–89
[2019-09-06 05:34] LABS: BASO % 0.3 % (0.0-1.0); EOS # 0.2 10^3/uL (0.0-0.5); EOS % 2.9 % (0.0-3.0); HEMATOCRIT 40.7 % (42.0-52.0); HEMOGLOBIN 13.3 g/dl (13.5-17.5); LYMPH % 15.5 % (24.0-44.0); MEAN CORPUSCULAR HEMOGLOBIN 29.8 pg (27.0-33.0); MEAN CORPUSCULAR HGB CONC 32.7 g/dl (32.0-36.5); MEAN CORPUSCULAR VOLUME 91.3 fl (80.0-96.0); MONO # 0.8 10^3/uL (0.0-0.8); MONO % 12.1 % (0.0-5.0); NEUTROPHILS # 4.3 10^3/uL (1.5-8.5); NEUTROPHILS % 68.9 % (36.0-66.0); PLATELET COUNT, AUTOMATED 152 10^3/uL (150-450); RED BLOOD COUNT 4.46 10^6/uL (4.30-6.10); WHITE BLOOD COUNT 6.3 10^3/uL (4.0-10.0)
[2019-09-06 05:44] LABS: INR 1.12; PROTHROMBIN TIME 14.1 SECONDS (11.8-14.0)
[2019-09-06 05:55] LABS: BLOOD UREA NITROGEN 13 MG/DL (7-18); CALCIUM LEVEL 8.9 MG/DL (8.8-10.2); CARBON DIOXIDE LEVEL 32 MEQ/L (21-32); CHLORIDE LEVEL 103 MEQ/L (98-107); CREATININE FOR GFR 1.06 MG/DL (0.70-1.30); GLOMERULAR FILTRATION RATE > 60.0 (>49); GLUCOSE, FASTING 118 MG/DL (70-100); POTASSIUM SERUM 4.4 MEQ/L (3.5-5.1); SODIUM LEVEL 136 MEQ/L (136-145)
--- NOTE | 2019-09-06 07:28 | IPNPDOC ---
Text Note Date of Service The patient was seen on 09/05/19. NOTE Subjective: Complains of of a sensation of pressure in the lower midchest nd e pigastrium. Says this has been going on for about 3 weeks. He would have episodes of coughing and retching and would spit out little amounts of blood which worsened yesterday. this am patient did not have any complaints. Physical Exam: Vitals: As below GEN: well-nourished / well developed/ NAD INTEGUMENT: not flushed/ not jaundice HEENT: NCAT / lips acyanotic /mucus membranes moist and pink / sclera anicteric CVS: RRR/NMRG/ no JVP / radial pulses intact / no lower extremity edema LUNGS: clear to auscultation bilaterally on room air ABDOMEN: Contour (flat,) / abdomen is tympanic on percussion, soft & not tender with palpation MSK/EXTREMITIES: range of motion intact in all 4 extremities NEURO: CN 2-12 are grossly intact / speech is not dysarthric PSYCH: alert and oriented to person place and time/ able to understand and follow all commands Labs and radiology reviewed Assessment and Plan: This is a 64-year-old male who presents with complaints of dark brown emesis yesterday that progressed to bright red emesis today. Associated symptoms include epigastric, nonradiating abdominal pressure which he rates as 2/10 in severity. He denies having fevers, chills, chest pain, short ness breath, or dizziness. He also has episodes of relapsing remitting palpitations (atrial fibrillation); he denies missing any doses of medications, but attributes the episodes of rapid A. fib. 2, to drinking alcohol. His last drink was this evening prior to arrival in the ER. He has a past medical history of chronic systolic CHF, atrial fibrillation, chronic hypertension, and alcohol abuse who is admitted for management of upper GI bleed and rapid A. fib. Upper GIB EGD shows likely malignant lower esophageal fungating mass. monitor HH continue clear liquids for 24 hours then resume chopped diet await biopsy results. will consult oncology. Esophageal cancer await biopsy results will consult oncology Rapid Atrial Fibrillation resolved. Now rate controlled. Likely due to alcohol abuse continue coreg, hold eliquis for now. Alcohol use disorder monitor for withdrawal. Chronic systolic CHF, EF 30% Likely alcoholic cardiomyopathy Currently is clinically compensated. Chronic hypertension c/w carvedilol, lisinopril and Lasix DVT PROPHYLAXIS: SCDs because of GI bleed VS,Fishbone, I+O VS, Fishbone, I+O Laboratory Tests 09/04/19 16:00 09/04/19 20:04 09/04/19 20:46 09/05/19 03:16 Vital Signs Date Time Temp Pulse Resp B/P (MAP) Pulse Ox O2 Delivery O2 Flow Rate FiO2 09/05/19 10:15 83 16 131/80 (97) 95 Room Air 09/05/19 09:47 97.5 I&O- Last 24 Hours up to 6 AM 09/05/19 06:00 Intake Total 1352 ml Balance 1352 ml MARIO STAUFFER MD Sep 05, 2019 12:24
[2019-09-06] MEDS: FOLIC ACID 1 MG in NS 50 ML IV SCH (08:22)
[2019-09-06] MEDS: THIAMINE HCL 200 MG/2 ML VIAL (J3411) IV SCH (08:22)
[2019-09-06] MEDS: CIPROFLOXACIN 400 MG in IV 1 EA IV SCH (08:22)
[2019-09-06] MEDS: CARVedilol 6.25 MG TAB PO SCH (08:22)
[2019-09-06] MEDS: PANTOPRAZOLE 40MG INJ (PROTONIX) (C9113) IV SCH (08:22)
[2019-09-06] MEDS ORDERED: FUROSEMIDE 40 MG TAB PO SCH (09:00)
[2019-09-06] MEDS ORDERED: ISOVUE-370 76% 100ML VIAL (Q9967) As Ordered ONE (09:38)
[2019-09-06] MEDS ORDERED: PANT40TA3 PO (11:22)
--- NOTE | 2019-09-06 11:30 | REPVR ---
PROCEDURE INFORMATION: Exam: CT Chest With Contrast Exam date and time: 09/06/2019 10:21 AM Age: 64 years old Clinical indication: Other: Cancer; Additional info: Esophageal cancer staging TECHNIQUE: Imaging protocol: Computed tomography of the chest with intravenous contrast. 3D rendering: MIP and/or 3D reconstructed images were created by the technologist. Radiation optimization: All CT scans at this facility use at least one of these dose optimization techniques: automated exposure control; mA and/or kV adjustment per patient size (includes targeted exams where dose is matched to clinical indication); or iterative reconstruction. Contrast material: ISOVUE 370; Contrast volume: 75 ml; Contrast route: IV; COMPARISON: CR PORTABLE CHEST X-RAY 09/04/2019 4:[address] ABD/PEL W/IV CONTRAST ONLY 09/04/2019 5:25:51 PM FINDINGS: Lungs: No acute infiltrate or consolidation is seen. 7 mm nodule is seen in the left upper lobe axial image 45. No other discrete nodules are seen. Pleural space: No pneumothorax. No pleural effusion. Heart: The heart demonstrates mild diffuse enlargement. There is moderate atherosclerotic calcification of the coronary arteries. Mediastinum: Examination again demonstrates marked wall thickening involving the distal esophagus and the adjacent gastric fundus consistent with known history esophageal carcinoma. There is no encasement of the adjacent thoracic aorta. Aorta: The thoracic aorta is normal caliber without evidence for aneurysm or dissection. Lymph nodes: There is a mildly enlarged gastrohepatic lymph node measuring 1.2 cm in diameter axial image 86. PET scan should be considered for further evaluation. Bones/joints: No discrete bony metastasis is seen. Soft tissues: Unremarkable. IMPRESSION: 1. Examination again demonstrates marked diffuse wall thickening involving the distal esophagus and the adjacent gastric fundus consistent with known history esophageal carcinoma. There is no encasement of the adjacent thoracic aorta. 2. There is a mildly enlarged gastrohepatic lymph node measuring 1.2 cm in diameter axial image 86. PET scan should be considered for further evaluation. 3. No acute infiltrate or consolidation is seen. 4. 7 mm nodule is seen in the left upper lobe axial image 45. No other discrete nodules are seen. 5. No discrete bony metastasis is seen. Electronically signed by: Tonio Bean On 09/06/2019 11:30:19 AM
--- NOTE | 2019-09-14 11:26 | DS.PDOC ---
Discharge Summary General Date of Admission Sep 04, 2019 at 20:04 Date of Discharge 09/06/19 Discharge Summary PROCEDURES PERFORMED DURING STAY: EGD: A large, fungating and ulcerating mass with no bleeding and stigmata of recent bleeding was found in the distal esophagus, 39 to 45 cm from the incisors. The mass was non-obstructing and partially circumferential (involving one-half of the lumen circumference). Biopsies were taken with a cold forceps for histology. Verification of patient identification for the specimen was done by the physician and nurse using the patient's name, date and medical record number. Estimated blood loss was minimal. No gross lesions were noted in the entire examined stomach. The duodenal bulb and second portion of the duodenum were normal. DISCHARGE DIAGNOSES: Upper GIB Malignant lower esophageal mass Afib with RVR Alcohol use disorder Chronic systolic CHF with EF of 30% Alcoholic cardiomyopathy Hypertension COMPLICATIONS/CHIEF COMPLAINT: A Fib W/Rvr; Upper Gi Bleed. HISTORY OF PRESENT ILLNESS: See history of present illness HOSPITAL COURSE: This is a 64-year-old male who presents with complaints of dark brown emesis yesterday that progressed to bright red emesis today. Associated symptoms include epigastric, nonradiating abdominal pressure which he rates as 2/10 in severity. He denies having fevers, chills, chest pain, shortness breath, or dizziness. He also has episodes of relapsing remitting palpitations (atrial fibrillation); he denies missing any doses of medications, but attributes the episodes of rapid A. fib. 2, to drinking alcohol. His last drink was this evening prior to arrival in the ER. He has a past medical history of chronic systolic CHF, atrial fibrillation, chronic hypertension, and alcohol abuse who is admitted for management of upper GI bleed and rapid A. fib. Upper GIB EGD shows malignant lower esophageal fungating mass. monitor HH await biopsy results. will consult oncology. Esophageal cancer await biopsy results CT abdomen and pelvis and CT chest done as per oncology recommendation. Rapid Atrial Fibrillation resolved. Now rate controlled. Likely due to alcohol abuse continue coreg, hold eliquis for now. Alcohol use disorder monitor for withdrawal. Chronic systolic CHF, EF 30% Likely alcoholic cardiomyopathy Currently is clinically compensated. Chronic hypertension c/w carvedilol, lisinopril and Lasix DVT PROPHYLAXIS: SCDs because of GI bleed DISCHARGE MEDICATIONS: Please see below. ALLERGIES: Please see below. PHYSICAL EXAMINATION ON DISCHARGE: VITAL SIGNS: Please see below. GEN: well-nourished / well developed/ NAD INTEGUMENT: not flushed/ not jaundice HEENT: NCAT / lips acyanotic /mucus membranes moist and pink / sclera anicteric CVS: RRR/NMRG/ no JVP / radial pulses intact / no lower extremity edema LUNGS: clear to auscultation bilaterally on room air ABDOMEN: Contour (flat,) / abdomen is tympanic on percussion, soft & not tender with palpation MSK/EXTREMITIES: range of motion intact in all 4 extremities NEURO: CN 2-12 are grossly intact / speech is not dysarthric PSYCH: alert and oriented to person place and time/ able to understand and follow all commands LABORATORY DATA: Please see below. ACTIVITY: [As tolerated]. DIET: mechanical soft DISPOSITION: Home, Self-Care. DISCHARGE INSTRUCTIONS: Follow up Oncology in 1 week PMD in 2 weeks ITEMS TO FOLLOWUP ON ON OUTPATIENT: Pathology of esophagela biopsy DISCHARGE CONDITION: [Stable]. TIME SPENT ON DISCHARGE: 35 minutes. Vital Signs/I&Os Vital Signs Label Value Date Time Pulse 92 09/06/19 1100 Pulse 101 09/06/19 1100 Pulse 88 09/06/19 1100 Blood Pressure Assessment 144/89 (107) 09/06/19 1100 Location Right Arm Source Automatic Cuff (NIBP) Position Supine Bedside Pulse Oximetry 99 % 09/06/19 1200 Respiratory Rate 20 bpm 09/06/19 1200 Discharge Medications Scheduled Aspirin (Aspir 81) 81 Mg Tablet.dr, 81 MG PO DAILY, (Reported) Carvedilol (Carvedilol) 6.25 Mg Tablet, 6.25 MG PO QAM, (Reported) Carvedilol (Carvedilol) 12.5 Mg Tablet, 12.5 MG PO QHS, (Reported) Furosemide (Lasix) 40 Mg Tablet, 40 MG PO 3XW, (Reported) FRIDAY, FRIDAY AND FRIDAY Lisinopril (Lisinopril) 10 Mg Tablet, 10 MG PO QHS, (Reported) Pantoprazole Sodium (Pantoprazole Sodium) 40 Mg Tablet.dr, 40 MG PO BID 1/2 hour breakfast and 3 hours after dinner Allergies Coded Allergies: No Known Drug Allergies (Verified Allergy, Unknown, 01/21/19) MARIO STAUFFER MD Sep 14, 2019 11:26
== END 2019-09-06 16:06 | disposition home or self-care (01) | DRG 240 ==
LOC: M ED 15:32 → M ED INP 20:04 → ENRESERVTM 09-05 00:23 → ENRESERVDT 09-05 00:23 → M ICU 09-05 01:18 → M PCU 09-05 17:01
PROVIDERS: ADMIT Internal Medicine; ATTEND Internal Medicine Nephrology
PROC: 0DD58ZX Extraction of Esophagus, Via Natural or Artificial Opening Endoscopic, Diagnostic (ICD-10-PCS; principal; 2019-09-05 08:30)
DX: C15.5 Malignant neoplasm of lower third of esophagus (principal); I11.0 Hypertensive heart disease with heart failure; K92.0 Hematemesis; I50.22 Chronic systolic (congestive) heart failure; I42.6 Alcoholic cardiomyopathy; I48.91 Unspecified atrial fibrillation; Z79.01 Long term (current) use of anticoagulants; F10.10 Alcohol abuse, uncomplicated; Z79.82 Long term (current) use of aspirin; Z79.899 Other long term (current) drug therapy; K92.2 Gastrointestinal hemorrhage, unspecified

== ENCOUNTER → 2019-09-28 | Outpatient (CLI) | payer OTHER ==
[~2019-09-28] MED LIST changes: +ASPI81TA85 PO; +CARV12.5 PO; +LASI40TA9 PO; +LISI10TA4 PO; +PANT40TA3 PO
--- NOTE | 2019-09-28 13:44 | REP ---
PET/CT: HISTORY: Staging esophageal cancer. COMPARISONS: Comparison CT study of the chest September 06, 2019 and abdomen and pelvis September 04, 2019. TECHNIQUE: 54 minutes following the intravenous injection of a 8.71 mCi dose of F-18 FDG, three-dimensional PET scintigraphy is acquired from the skull base to the proximal thighs. Triplanar noncontrast CT scanning is acquired through the same anatomic range for attenuation correction, and image registration with scan parameters optimized to minimize radiation exposure to the patient. PET scintigraphy and CT datasets were fused and displayed on a workstation with multiplanar and projection display capability. PET/CT FINDINGS: The head and neck soft tissues are unremarkable. There is no abnormal hypermetabolic uptake within the thorax. There is hypermetabolic uptake in the large distal esophagus gastric cardia mass which is known to be malignant. Maximum standard uptake value in this mass at the GE junction is 9.41. The lesion measures 5.8 cm in greatest diameter. There are several celiac axis lymph nodes consistent with adenopathy. Only the largest of these is hypermetabolic. Maximum standard uptake value in this 2.2 cm lymph node in the celiac axis is 6.31. No other adenopathy is appreciated. No abnormal hypermetabolic uptake in the liver. No abnormal adrenal uptake. 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 Otherwise negative. Electronically Signed by Alexsander Moscoso MD 09/28/2019 03:09 P
== END ==
LOC: M PLARAD 10:13
PROVIDERS: ATTEND Internal Medicine Medical Oncology
DX: C15.5 Malignant neoplasm of lower third of esophagus (principal)
CPT/HCPCS: 78815; A9552

== ENCOUNTER → 2019-10-07 | Outpatient (CLI) | payer OTHER ==
[~2019-10-07] MED LIST changes: +ONETAB32 PO; +VITA100062 PO
--- NOTE | 2019-10-07 11:00 | RADONC ---
RADIATION ONCOLOGY CONSULTATION NOTE DATE: 10/07/2019 CHART NUMBER: [id number] DIAGNOSIS: Gastroesophageal junction cancer. STAGE: III B, T3, N2, M0. ECOG PERFORMANCE STATUS: 0 CONSULTATION NOTE: Mr. 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 HISTORY OF PRESENT ILLNESS: The patient was in his usual state of health with a history of congestive heart failure and alcoholism as well as atrial fibrillation. He reported that he has had some difficulty swallowing solid foods for approximately 6 months or so. He was seen by Dr. Fernandez and endoscopy was undertaken on 09/05/2019. A large fungating and ulcerating mass with no bleeding was found in the distal esophagus from 39-45 cm from the incisors. The mass was partially circumferential but nonobstructing. Biopsy was undertaken and pathology revealed a focus of moderate to poorly differentiated adenocarcinoma. A CT scan of the abdomen and pelvis was done on 09/04/2019, which showed multiple subcentimeter size lymph nodes in the root of the mesentery. Again, a PET CT scan was done on 09/28/2019 that showed a large distal esophageal and gastric cardia hypermetabolic mass. The SUV value of this mass was 9.41. The mass measured 5.8 cm in greatest diameter. There were several celiac axis lymph nodes consistent with adenopathy. The largest lymph node measured 2.2 cm and had a SUV value of 6.35. On 10/06/2019, the patient underwent endoscopic gastroduodenoscopy with endoscopic ultrasound. This revealed a 7-8 cm long ulcerated circumferential distal esophageal cancer extending into the gastric cardia. The esophageal lumen was occluded by at least 75%. The cancer penetrated through the muscularis propria layer. Four small mediastinal shasta tumor lymph nodes were found. The celiac region showed two small 9-10 mm celiac lymph nodes. There were two gastrohepatic ligament lymph nodes, the largest measuring 1.2 cm. In conclusion, the tumor was staged as a stage III B, T3N2M0, moderate to poorly differentiated adenocarcinoma of the GE junction. He is now being referred to me for consideration of preoperative radiation therapy combined with chemotherapy. PAST MEDICAL HISTORY: The patient's past medical history is positive for congestive heart failure. He has had atrial fibrillation in the past. He also has a history of alcoholism. He reports that he has had a 20 pound weight loss. Estimated ejection fraction was 30-35%. ALLERGIES: The patient has NO KNOWN DRUG ALLERGIES. SOCIAL HISTORY: The patient does not smoke cigarettes. He had previously been a heavy drinker but that has reduced significantly. FAMILY HISTORY: The patient's family history is positive for a father with some type of cancer. REVIEW OF SYSTEMS: The patient's review of systems is positive for his 20 pound weight loss over the past 6 months and some difficulty swallowing solid foods, but is otherwise noncontributory except for some hearing loss. Denies nausea, vomiting, fevers, chills, night sweats, diplopia, headaches, anxiety or depression, anorexia, visual disturbances, chest pain, urinary or bowel difficulties, bone pain, or neurological problems. PHYSICAL EXAMINATION: Physical examination was deferred at this point secondary to COVID-19 precautions. ASSESSMENT: Clearly the patient is a candidate for external beam radiation therapy and I have so informed him. I have discussed with the patient in detail the potential benefits as well as possible acute and chronic sequelae of external beam radiation therapy. We have discussed logistics of treatment planning, simulation and subsequent fractionated daily radiation treatments. We discussed in detail the placement of his chemotherapy port and scheduling for his treatment planning. The patient seems very hesitant to consider a feeding tube, and at this point that can be done later if he so chooses. I explained the difficulties he may develop with swallowing and the need to continue taking his various medications. He reports that they are all pills and not capsules and can be crushed. He and his seem to be indicating that he is a surgical candidate and they simply have to decide on which of the two surgeons he has seen that will be considering the case. Whether or not he is preoperative radiation or definitive radiation does not change our treatment vargas or daily dose per fraction. A decision simply needs to be made prior to completion of 25 fractions. If he is going for definitive treatment, we will attempt to give him approximately three additional fractions of radiation. Considering the size and advanced nature of this disease, I believe he would be better served with surgery if it is not too risky considering his cardiac issues. I will continue to coordinate his care closely with his medical oncologist, Dr. Mg. Thank you for allowing us to participate in this patient's care. As always, warm regards. cc: MD Tin Yoder MD Mark J. Crye, MD Day Hills, MD Fritz Roc, MD John Sun, DO Nicholas Yerkes, MD
== END ==
LOC: M ONCR 08:50
PROVIDERS: ATTEND Radiology Radiation Oncology
DX: C15.9 Malignant neoplasm of esophagus, unspecified (principal)

== ENCOUNTER → 2019-10-11 | Outpatient (CLI) | payer OTHER ==
[~2019-10-11] MED LIST changes: +LIDOCAINE 1% MDV 20ML VIAL As Ordered ONE; +MIDAZOLAM INJ 2 MG/2 ML VIAL (J2250) As Ordered ONE; +ONDA8TAB10 PO; +PROC10TA4 PO; +ceFAZolin 1GM VIAL (J0690 PER 500MG) As Ordered ONE; +diphenhydrAMINE 50MG/ML VIAL (J1200) As Ordered ONE; +fentaNYL 100 MCG/2 ML INJECTION (J3010) As Ordered ONE
--- NOTE | 2019-10-11 16:01 | IRHP ---
[facility] IR Pre-Procedure H & P General Date of Service: Oct 11, 2019 Procedure: Same Day Surgery Interval History and Physical I have seen the patient and reviewed last H & P performed within 30 days. There is no significant interval change. History of Present Illness Chief Complaint The patient is a 64-year-old male admitted with a reason for visit of Distal Esophageal Ca. PRE-PROCEDURE DIAGNOSIS: esophageal ca HEART: normal rate LUNGS: normal breathing at rest. ASA Classification ASA Classification: II-Mild systemic disease Mallampati Score: II NPO: Yes Problems with prior sedation: No Obstructive Sleep Apnea: No Plan moderate sedation Allergies Coded Allergies: No Known Drug Allergies (Verified Allergy, Unknown, 01/21/19) Home Medications Scheduled Ascorbic Acid (Vitamin C), 1,000 MG PO DAILY, (Reported) Aspirin (Aspir 81), 81 MG PO DAILY, (Reported) Carvedilol (Carvedilol), 6.25 MG PO QAM, (Reported) Carvedilol (Carvedilol), 12.5 MG PO QHS, (Reported) Furosemide (Lasix), 40 MG PO 3XW, (Reported) Lisinopril (Lisinopril), 10 MG PO QHS, (Reported) Pantoprazole Sodium (Pantoprazole Sodium), 40 MG PO BID Scheduled PRN Ondansetron HCl (Ondansetron HCl), 8 MG PO Q6H PRN for NAUSEA OR VOMITING Prochlorperazine Maleate (Prochlorperazine Maleate), 10 MG PO Q8HP PRN for NAUSEA OR VOMITING Discontinued Medications Apixaban (Eliquis), 5 MG PO DAILY, (Reported) Discontinued Reason: Pt states not taking Mv-Mins/Folic/Lycopene/Ginkgo (One Daily For Men 50+ Adv Tab), 1 TAB PO DAILY, (Reported) Discontinued Reason: Pt states not taking VS, I&O, 24H, Fishbone Vital Signs/I&O Vital Signs Date Time Temp Pulse Resp B/P (MAP) Pulse Ox O2 Delivery O2 Flow Rate FiO2 10/11/19 15:45 110 16 97 Nasal Cannula 2 10/11/19 14:40 97.2 CHARLEY VELEZ MD Oct 11, 2019 16:01
--- NOTE | 2019-10-11 16:04 | POST-OPPD ---
Postoperative Procedure Note Date Of Procedure: Oct 11, 2019 Time Of Procedure: 16:04 please see report under imaging tab CHARLEY VELEZ MD Oct 11, 2019 16:04
--- NOTE | 2019-10-11 16:06 | REP ---
IR Ultrasound and fluoroscopy-guided port placement. IR Ultrasound of the neck. IR Moderate sedation. Clinical information: Esophageal cancer. Physician: Dr. Mckeon. Procedure: The patient was advised of the benefits, risks, and alternatives of the procedure and informed consent was obtained. A time-out was performed with verification of the patient's name, MRN, site of procedure and type of procedure to be performed. The patient was positioned in the supine position on the angiographic table. The site was prepped and draped in the usual sterile fashion. Moderate sedation was performed by the physician including the presence of an independent trained observer who assisted and monitored the patient's level of consciousness and physiologic status. Following the administration of Fentanyl and Versed, the physician spent 45 minutes of continuous face to face time with the patient. Ultrasound of the neck reveals a patent and compressible right internal jugular vein. A database specialist radiograph reveals no gross abnormality right lung. The neck and anterior chest wall were anesthetized with lidocaine. The right internal jugular vein was accessed using a microintroducer needle under ultrasound guidance, via a lateral approach. An 018 wire was advanced into the superior vena cava, the needle was removed and a microsheath was placed. An Amplatz wire was then passed into the inferior vena cava. An incision at the internal jugular vein access site and anterior chest wall were made using a scalpel. An incision was made at the anterior chest wall. A small pocket was created using a combination of blunt and sharp dissection. A tunneling device was then used to pass the catheter from the pocket to the neck puncture site. An 8-[place] [employer] smart power port was then positioned in the pocket. The catheter was then measured and cut. The introducer sheath was exchanged for a peel-away sheath. The catheter was passed through the peel-away sheath into the internal jugular vein and the peel-away sheath was removed. The port tip was positioned at the cavoatrial junction. The port was then accessed with a Osman needle. The port flushes and aspirates well. The puncture site in the neck was closed. The chest wall incision was then closed with 2-0 Vicryl and 4-0 Monocryl. Glue and Steri-Strips were applied. A sterile dressing was then applied. The patient tolerated the procedure well and was returned to the PRU in stable condition. Estimated blood loss: <5 ml. Complications: None. Conclusion: 1. Successful placement of an 8-[place] [employer] smart power port via the right internal jugular vein. The port is ready for immediate use. 2. Patient to follow up in IR clinic in 2 weeks. Thank you for this referral. Electronically Signed by Dalia Mckeon MD 10/11/2019 04:03 P
[2019-10-11 17:40] VITALS: BP 143/89
== END ==
LOC: M IRPRO 14:33
PROVIDERS: ATTEND Radiology Diagnostic Radiology
DX: C15.9 Malignant neoplasm of esophagus, unspecified (principal); Z79.82 Long term (current) use of aspirin; Z79.899 Other long term (current) drug therapy
CPT/HCPCS: 36561; 99152; 99153; C1769; C1788; C1894; J0690; J1200; J1642; J1644; J2250; J3010

== ENCOUNTER 2019-10-23 01:37 | Inpatient (IN) | payer OTHER ==
[~2019-10-23] VITALS: Ht 177.8 cm; Wt 95.5 kg
[2019-10-23] VITALS (14 sets, daily range): BP systolic 99–136; BP diastolic 61–80
[~2019-10-23 01:37] MED LIST changes: -LIDOCAINE 1% MDV 20ML VIAL As Ordered ONE; -MIDAZOLAM INJ 2 MG/2 ML VIAL (J2250) As Ordered ONE; -ceFAZolin 1GM VIAL (J0690 PER 500MG) As Ordered ONE; -diphenhydrAMINE 50MG/ML VIAL (J1200) As Ordered ONE; -fentaNYL 100 MCG/2 ML INJECTION (J3010) As Ordered ONE
[2019-10-23] MEDS ORDERED: ENSULIQ8 PO (01:52)
[2019-10-23] MEDS ORDERED: MIRA3350 PO (01:52)
[2019-10-23] MEDS ORDERED: MULTCAP PO (01:52)
[2019-10-23] MEDS ORDERED: NON-325T5 PO (01:52)
[2019-10-23 03:08] LABS: BASO % 0.3 % (0.0-1.0); EOS # 0.1 10^3/uL (0.0-0.5); EOS % 0.7 % (0.0-3.0); LYMPH % 11.5 % (24.0-44.0); MEAN CORPUSCULAR HEMOGLOBIN 28.2 pg (27.0-33.0); MEAN CORPUSCULAR HGB CONC 32.5 g/dl (32.0-36.5); MEAN CORPUSCULAR VOLUME 86.8 fl (80.0-96.0); MONO # 0.6 10^3/uL (0.0-0.8); MONO % 7.3 % (0.0-5.0); PLATELET COUNT, AUTOMATED 191 10^3/uL (150-450); RED BLOOD COUNT 2.27 10^6/uL (4.30-6.10); WHITE BLOOD COUNT 8.7 10^3/uL (4.0-10.0)
[2019-10-23 03:17] LABS: HEMATOCRIT 19.7 % (42.0-52.0)
[2019-10-23 03:18] LABS: HEMOGLOBIN 6.4 g/dl (13.5-17.5)
[2019-10-23 03:22] LABS: INR 1.15; PROTHROMBIN TIME 14.4 SECONDS (11.8-14.0)
[2019-10-23 03:36] LABS: ALBUMIN 3.1 GM/DL (3.2-5.2); ALT/SGPT 14 U/L (12-78); BILIRUBIN,DIRECT < 0.1 MG/DL (0.0-0.2); BILIRUBIN,TOTAL 0.4 MG/DL (0.2-1.0); BLOOD UREA NITROGEN 30 MG/DL (7-18); CALCIUM LEVEL 7.8 MG/DL (8.8-10.2); CARBON DIOXIDE LEVEL 29 MEQ/L (21-32); CHLORIDE LEVEL 100 MEQ/L (98-107); CREATININE FOR GFR 0.86 MG/DL (0.70-1.30); GLOMERULAR FILTRATION RATE > 60.0 (>49); GLUCOSE, FASTING 134 MG/DL (70-100); POTASSIUM SERUM 4.3 MEQ/L (3.5-5.1); SODIUM LEVEL 136 MEQ/L (136-145); TOTAL PROTEIN 6.4 GM/DL (6.4-8.2)
[2019-10-23] MEDS ORDERED: DIGOXIN INJ 0.5 MG/2 ML AMP (J1160) IV STA (03:54)
[2019-10-23] MEDS ORDERED: METOPROLOL 5 MG/5 ML VIAL IV STA (03:54)
[2019-10-23] MEDS ORDERED: NS 500 ML IV ONE (04:00)
[2019-10-23] MEDS ORDERED: atenoloL 25 MG TAB PO ONE (04:00)
[2019-10-23] MEDS ORDERED: FURO20TA2 PO (04:11)
--- NOTE | 2019-10-23 04:42 | HPEPDOC ---
[facility] Medical History & Physical Date of Admission Oct 23, 2019 Date of Service: Oct 23, 2019 Attending Physician: LILY LAM MD History and Physical PRIMARY CARE PROVIDER: Kelley Polk NPP ATTENDING: Dr. Lily Lam CHIEF COMPLAINT: Hematemesis, lightheadedness HISTORY OF PRESENT ILLNESS: Patient is a 64 year old male presenting with chief complaint of hematemesis. He has a history of advanced distal esophageal poorly differentiated adenocarcinoma with a partially obstructing gastroesophageal junction mass who recently had a mediport placed on 10/11/2019 and a PEG-tube placed this past Friday. On Friday, he had a mild to moderate amount of bloody drainage overlying the wound site that began to clear out with some mild abdominal pain specifically when he coughed or sneezed. On Friday and he had single episodes of hematemesis with mixed food in his vomit that he was told full with clear up. Friday early afternoon, he had 2 small episodes of hematemesis, had 2-3 beers hoping that would make him self feel better, and then had 2-3 more episodes of mixed hematemesis. It wasn't until he became lightheaded, dizzy, felt dehydrated that he decided to go to the emergency department early Friday morning. In the emergency department, he was found to have a hemoglobin of 6.8 and so the hospitalist team was called for admission. PAST MEDICAL HISTORY: Chronic systolic CHF with EF 30% Atrial fibrillation now only on aspirin in light of his GI bleeds Hypertension Esophageal adenocarcinoma Alcohol abuse PAST SURGICAL HISTORY: PEG tube placement Mediport placement SOCIAL HISTORY: Patient reports history of heavy alcohol abuse in the past, but other than the 2-3 beers he drank on Friday has not had alcohol on the past 2 weeks. Denies use of tobacco products, denies any marijuana, heroin, cocaine, or PCP use. Retired [employer]. FAMILY HISTORY: CAD Diabetes ALLERGIES: Please see below. REVIEW OF SYSTEMS: GENERAL: Denies fevers, chills, HEENT: Denies headache, vision changes, hearing loss, admits to sore throat and lightheadedness CARDIOVASCULAR: Denies chest pain, palpitations, orthopnea RESPIRATORY: Denies shortness of breath, wheezing, cough GASTROINTESTINAL: denies diarrhea, bloody stool. Admits to intermittent nausea, vomiting, constipation, intermittent abdominal pain. GENITOURINARY: Denies dysuria,urinary urgency, hematuria. MUSCULOSKELETAL: Denies muscle/joint pain, weakness, stiffness NEUROLOGICAL: Denies any numbness/tingling, focal weakness, or syncope HOME MEDICATIONS: Please see below. PHYSICAL EXAMINATION: Vitals: (see below) General: No acute distress, laying comfortably in bed. HEENT: Normocephalic, atraumatic. EOMI. No scleral icterus. Moist mucous membranes. No pharyngeal erythema or uvular deviation. Neck: No JVD, lymphadenopathy, or thyromegaly. Cardiac: Tachycardic rate irregular rhythm, Normal S1 and S2, No murmurs, gallops, rubs. Pulm: Clear to auscultation b/l. Symmetric thorax. No wheezing, crackles, rhonchi Abd: Bowel Sounds present. Abdomen is soft, non-tender, non-distended. No guarding, rebound tenderness, or rigidity. PEG tube in place with dressing. No hepatosplenomegaly. No masses or eccymosis. Ext: No edema or cyanosis Neuro: CN 2-12 intact. No focal neuro deficits LABORATORY DATA: See below. IMAGING: none MICROBIOLOGY: Please see below. ASSESSMENT/PLAN: #. Anemia in the setting of Upper GI bleed -Unclear whether this is a complication from his recent surgery, a result of his alcohol use, or represents sudden worsening of his known esophageal cancer -Transfusing 2 units of PRBC, trending H&H every 6 hours, starting Protonix drip, patient will likely require repeat endoscopy or imaging to establish source of the bleed, day team to reach to GI if they are on or interventional radiology in the morning otherwise he may need to wait until Friday for further intervention unless he becomes unstable. #. A. fib with RVR -Patient to be given IV metoprolol 1, atenolol and will resume home carvedilol while inpatient. Holding parameters in place. We'll hold aspirin, eliquis in light of GI bleed #. Esophageal adenocarcinoma - He had radiation markers placed this past Friday. Follows with Dr. Mg for his cancer and is a patient of Dr. Fernandez. #. Hx of Alcohol abuse - Ethanol WNL, thiamine, folate, IV zofran - CIWA protocol in place, educate patient on risks of recurrent bleeds with alcohol use. #. Hypertension -Continue home medications with holding parameters #. Congestive heart failure - Stable currently, no signs of fluid overload or decompensation, continue home medications with holding parameters. -DVT prophy: Teds and sequentials in light of GI bleed HOSPITALIST ATTENDING ADDENDUM: I have independently interviewed and examined the patient at the bedside, and agree with the aforementioned history, clinical findings, and management plan as documented by my resident physician. The patient's concerns and questions have been satisfactorily addressed. The patient has been encouraged to contact our office for any new concerns at [phone]. Vital Signs Vital Signs Date Time Temp Pulse Resp B/P (MAP) Pulse Ox O2 Delivery O2 Flow Rate FiO2 10/23/19 04:28 121 10/23/19 04:27 142/66 10/23/19 01:50 97.6 18 100 Room Air Laboratory Data Labs 24H Laboratory Tests 2 10/23/19 03:02: Immature Granulocyte % (Auto) 0.2, Neutrophils (%) (Auto) 80.0H, Lymphocytes (%) (Auto) 11.5L, Monocytes (%) (Auto) 7.3H, Eosinophils (%) (Auto) 0.7, Basophils (%) (Auto) 0.3, Neutrophils # (Auto) 7.0, Lymphocytes # (Auto) 1.0L, Monocytes # (Auto) 0.6, Eosinophils # (Auto) 0.1, Basophils # (Auto) 0.0, Nucleated Red Blood Cells % (auto) 0.0, Prothrombin Time 14.4H, Prothromb Time International Ratio 1.15, Activated Partial Thromboplast Time 26.0, Anion Gap 7L, Glomerular Filtration Rate > 60.0, Calcium Level 7.8L, Total Bilirubin 0.4, Direct Bilirubin < 0.1, Aspartate Amino Transf (AST/SGOT) 12, Alanine Aminotransferase (ALT/SGPT) 14, Alkaline Phosphatase 61, Total Protein 6.4, Albumin 3.1L, Albumin/Globulin Ratio 0.94L, Ethyl Alcohol Level < 0.003 CBC/BMP Laboratory Tests 10/23/19 03:02 Home Medications Scheduled Ascorbic Acid (Vitamin C) 1,000 Mg Tablet, 1,000 MG PO DAILY Aspirin (Aspir 81) 81 Mg Tablet.dr, 81 MG PO DAILY Carvedilol (Carvedilol) 6.25 Mg Tablet, 6.25 MG PO BID Furosemide (Furosemide) 20 Mg Tablet, 20 MG PO 3XW FRIDAY, FRIDAY AND FRIDAY Lactose-Reduced Food (Ensure Liquid) 237 Ml Liquid, 237 ML PO DAILY Lisinopril (Lisinopril) 10 Mg Tablet, 10 MG PO QHS Multivitamin (Multivitamins) 1 Each Capsule, 1 CAP PO DAILY Pantoprazole Sodium (Protonix) 40 Mg Tablet.dr, 1 TAB PO BID Scheduled PRN Acetaminophen (Acetaminophen) 325 Mg Tablet, 500 TAB PO Q4-6HP PRN for PAIN Ondansetron HCl (Ondansetron HCl) 8 Mg Tablet, 8 MG PO Q6H PRN for NAUSEA OR VOMITING Polyethylene Glycol 3350 (Miralax) 119 Gm Powder, 17 GM PO DAILY PRN for CONSTIPATION dilute in 8 ounces of water or juice Prochlorperazine Maleate (Prochlorperazine Maleate) 10 Mg Tablet, 10 MG PO Q8HP PRN for NAUSEA OR VOMITING Allergies Coded Allergies: No Known Drug Allergies (Verified Allergy, Unknown, 01/21/19) A-FIB/CHADSVASC A-FIB History Current/History of A-Fib/PAF?: Yes Current PO Anticoag Therapy: No Age/Risk Factor Scoring CHADSVASC: CHADSVASC Response (Comments) Value Age Risk Factor Age < 65 years old 0 Gender Risk Factor Male 0 Hx of CHF Yes 1 Hx of HTN Yes 1 Hx of Stroke/TIA/or VTE No 0 Hx of Diabetes No 0 Hx of Vascular Disease No 0 Total 2 Treatment Treatment ordered: NONE Reason Anticoagulant not given: Current bleeding GME ATTESTATION GME ATTESTATION My faculty preceptor for this patient encounter was physically present during the encounter and was fully available. All aspects of the patient interview, examination, medical decision making process, and medical care plan development were reviewed and approved by the faculty preceptor. The faculty preceptor is aware and concurs with the plan as stated in the body of this note and will attest to such by his/her cosignature. ATTENDING NOTE HOSPITALIST ATTENDING ADDENDUM: I have independently interviewed and examined the patient at the bedside, and agree with the aforementioned history, clinical findings, and management plan as documented by my resident physician. The patient's concerns and questions have been satisfactorily addressed. The patient has been encouraged to contact our office for any new concerns at [phone]. OMID BIRMINGHAM DO Oct 23, 2019 04:42 LILY LAM MD Oct 23, 2019 22:31
[2019-10-23] MEDS ORDERED: LORazepam 2 MG TAB PO PRN (05:15)
[2019-10-23] MEDS ORDERED: ONDANSETRON 4MG/2ML VIAL (J2405 PER 1MG) IV PRN (05:15)
[2019-10-23] MEDS ORDERED: DOCUSATE SODIUM 100 MG CAP PO PRN (05:15)
[2019-10-23] MEDS: PANTOPRAZOLE SODIUM 40 MG in D5W 50 ML IV SCH ×3 (06:10→17:15)
[2019-10-23] MEDS ORDERED: MULTIVITAMINS/MINERALS THERAP 1 TAB PO SCH (09:00)
[2019-10-23] MEDS ORDERED: CARVedilol 6.25 MG TAB PO SCH (09:00)
[2019-10-23] MEDS ORDERED: DOCUSATE SOD LIQ 100MG/10ML UDC GT SCH (09:00)
[2019-10-23] MEDS ORDERED: FOLIC ACID 1 MG TAB PO SCH (09:00)
[2019-10-23] MEDS ORDERED: THIAMINE 100 MG TAB PO SCH (09:00)
[2019-10-23 12:30] LABS: HEMATOCRIT 22.6 % (42.0-52.0); HEMOGLOBIN 7.6 g/dl (13.5-17.5)
[2019-10-23] MEDS ORDERED: BISACODYL 10 MG SUPP PR ONE (13:00)
[2019-10-23] MEDS ORDERED: OCTREOTIDE ACETATE 100MCG/ML VIAL (J2354 PER 25MCG) SC SCH (14:00)
[2019-10-23] MEDS ORDERED: PROT1TAB2 PO (15:18)
--- NOTE | 2019-10-23 15:38 | DS.PDOC ---
Discharge Summary General Date of Admission Oct 23, 2019 at 03:54 Date of Discharge 10/23/19 Attending Physician: SHERLY BUSTAMANTE MD Discharge Summary PROCEDURES PERFORMED DURING STAY: None ADMITTING DIAGNOSES: 1. Hematemesis, GI bleed DISCHARGE DIAGNOSES: 1. Hematemesis, GI bleed COMPLICATIONS/CHIEF COMPLAINT: Afib With Rvr, Gi Hemorrhage. HISTORY OF PRESENT ILLNESS: 64 y.o male who was initially admitted at the end of August, with GI bleed, underwent EGD which showed esophageal lesion, which was later found to be malignant. He has had outpatient workup and follow up w/ Oncology, had Infusaport & PEG placement ~1 week ago. He presented last night after having multiple episodes of hematemesis since yesterday morning. His hemoglobin dropped from 10 --> 6.4, received 2 units of PRBC, hemoglobin improved to 7.6. He continues to have small amount of hematemesis during my evaluation in the morning. We do not have any GI coverage at this time. General surgery was consulted, as patient is likely bleeding from esophageal cancer, he will likely require a stent placement which general surgery will not be able to do. I contacted [facility] for transfer given these circumstances and patient has been accepted by the hospitalist service at [facility]. A bed is currently available for the patient and he will be transferred to [facility] later today. He is currently hemodynamically stable for discharge. HOSPITAL COURSE: As above DISCHARGE MEDICATIONS: Please see below. ALLERGIES: Please see below. PHYSICAL EXAMINATION ON DISCHARGE: VITAL SIGNS: Please see below. GENERAL: No distress HEENT: Moist mucus membranes NECK: Supple CARDIOVASCULAR EXAMINATION: S1, S2 RESPIRATORY EXAMINATION: scattered rhonchi, no wheezing ABDOMINAL EXAMINATION: soft, non-tender, non-distended, +BS EXTREMITIES: ROM intact SKIN: no rash NEUROLOGICAL EXAMINATION: No focal deficits PSYCHIATRIC EXAMINATION: calm LABORATORY DATA: Please see below. PROGNOSIS: Guarded ACTIVITY: As tolerated DIET: NPO DISCHARGE PLAN: follow up w/ Hospitalist & GI at [facility] DISPOSITION: [facility] DISCHARGE INSTRUCTIONS: 1. As above DISCHARGE CONDITION: Stable TIME SPENT ON DISCHARGE: Greater than 32 minutes. Vital Signs/I&Os Vital Signs Date Time Temp Pulse Resp B/P (MAP) Pulse Ox O2 Delivery O2 Flow Rate FiO2 10/23/19 13:06 87 130/80 10/23/19 11:45 98.7 20 95 Room Air I&O- Last 24 Hours up to 6 AM 10/23/19 06:00 Intake Total 0 ml Output Total 1000 ml Balance -1000 ml Laboratory Data Labs 24H Laboratory Tests 2 10/23/19 03:02: Immature Granulocyte % (Auto) 0.2, Neutrophils (%) (Auto) 80.0H, Lymphocytes (%) (Auto) 11.5L, Monocytes (%) (Auto) 7.3H, Eosinophils (%) (Auto) 0.7, Basophils (%) (Auto) 0.3, Neutrophils # (Auto) 7.0, Lymphocytes # (Auto) 1.0L, Monocytes # (Auto) 0.6, Eosinophils # (Auto) 0.1, Basophils # (Auto) 0.0, Nucleated Red Blood Cells % (auto) 0.0, Prothrombin Time 14.4H, Prothromb Time International Ratio 1.15, Activated Partial Thromboplast Time 26.0, Anion Gap 7L, Glomerular Filtration Rate > 60.0, Calcium Level 7.8L, Total Bilirubin 0.4, Direct Bilirubin < 0.1, Aspartate Amino Transf (AST/SGOT) 12, Alanine Aminotransferase (ALT/SGPT) 14, Alkaline Phosphatase 61, Total Protein 6.4, Albumin 3.1L, Albumin/Globulin Ratio 0.94L, Ethyl Alcohol Level < 0.003 CBC/BMP Laboratory Tests 10/23/19 03:02 10/23/19 12:11 Discharge Medications Scheduled Ascorbic Acid (Vitamin C) 1,000 Mg Tablet, 1,000 MG PO DAILY, (Reported) Aspirin (Aspir 81) 81 Mg Tablet.dr, 81 MG PO DAILY, (Reported) Carvedilol (Carvedilol) 6.25 Mg Tablet, 6.25 MG PO BID, (Reported) Furosemide (Furosemide) 20 Mg Tablet, 20 MG PO 3XW, (Reported) FRIDAY, FRIDAY AND FRIDAY Lactose-Reduced Food (Ensure Liquid) 237 Ml Liquid, 237 ML PO DAILY, (Reported) Lisinopril (Lisinopril) 10 Mg Tablet, 10 MG PO QHS, (Reported) Multivitamin (Multivitamins) 1 Each Capsule, 1 CAP PO DAILY, (Reported) Pantoprazole Sodium (Protonix) 40 Mg Tablet.dr, 1 TAB PO BID Scheduled PRN Acetaminophen (Acetaminophen) 325 Mg Tablet, 500 TAB PO Q4-6HP PRN for PAIN, (Reported) Ondansetron HCl (Ondansetron HCl) 8 Mg Tablet, 8 MG PO Q6H PRN for NAUSEA OR VOMITING Polyethylene Glycol 3350 (Miralax) 119 Gm Powder, 17 GM PO DAILY PRN for CONSTIPATION, (Reported) dilute in 8 ounces of water or juice Prochlorperazine Maleate (Prochlorperazine Maleate) 10 Mg Tablet, 10 MG PO Q8HP PRN for NAUSEA OR VOMITING Allergies Coded Allergies: No Known Drug Allergies (Verified Allergy, Unknown, 01/21/19) SHERLY BUSTAMANTE MD Oct 23, 2019 15:38
--- NOTE | 2019-10-23 20:28 | CR ---
DATE OF CONSULTATION: 10/23/2019 CHIEF COMPLAINT: Hematemesis/coffee-ground emesis. 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 It looks like it is metastatic to one node. He has told me that he has plans of being started on chemotherapy as well as radiation for this esophageal cancer, and this was recently diagnosed by Dr. Fernandez at the beginning of last month and then subsequently had an Qjscaf-K-Hqvh placed as well as a percutaneous gastrostomy tube placed in interventional radiology. That was about a week ago when he had that percutaneous endoscopic gastrostomy (PEG) tube placed, and since that time he has noticed a little more constipation, and he has been without abdominal complaints until the last 48 hours, when he presented to the emergency room with hematemesis and some minimal possible coffee-ground emesis. He has had some orthostatic hypotension on admission to the emergency room and was admitted to the hospitalist service for additional treatment, and they have asked me to evaluate him this morning for additional recommendations since gastrointestinal (GI) is not available this weekend. PAST MEDICAL HISTORY: Consistent with: 1. History of congestive heart failure with a low ejection fraction (EF). 2. History of atrial fibrillation. 3. History of hypertension. 4. History of alcohol abuse. 5. History of adenocarcinoma of the esophagus. PAST SURGICAL HISTORY: Mediport placement as well as PEG tube placement. PHYSICAL EXAMINATION: Reveals a 64-year-old male who looks stated age. HEENT is unremarkable. Neck supple without adenopathy. Lungs are clear. Heart is regular with multiple irregular beats. Abdomen is soft, nontender, nondistended. His gastrostomy (G) tube is in place. I irrigated out the G tube, and we do have some coffee-ground material from this. Initially he states he had some coffee-ground emesis with more mucus over the last approximately 2 hours prior to my seeing him. I then re-evaluated him later and still has a fair bit of coffee-ground watery fluid within the G tube bag that I put to gravity. In any case, he came in with significant anemia, and I was asked to see him for additional intervention recommendations. IMPRESSION AND PLAN: The patient has evidence of an esophageal cancer. I anticipate most likely thing that is going on at this time is a friable esophageal cancer, probably did get stirred up a little bit with the small nasogastric (NG) tube/feeding tube that went to insufflate the stomach at the time of the PEG tube and contributed to some of the oozing that has been ongoing at this point. It could be simply the tumor itself also become more necrotic and bleeding. In any case, that is the most likely etiology. It is less likely that it is bleeding from the G tube site itself and also less likely that it is a new duodenal ulcer or distal bleeding that is coming back. Thus, from the current abnormality that I see, let us keep the G tube to gravity, and we will make him nothing by mouth at this time, give him intravenous (IV) fluids, start some octreotide for him, although I think that may have limited benefit at most, and will see how he does from a stability standpoint over the next several hours. If he needs intervention, I do feel that an esophageal stent may be the only method of tamponading the area. Typically, endoscopic cautery/injection of epinephrine is limited and not significantly helpful in individuals who have fungating cancers. Thus, we will continue with supportive care. We will see how he does over the next several hours, but if necessary we may have to consider transferring this patient to [place] for GI to evaluate him for possible stent placement; however, if he is stable over the next several hours and days, it may be reasonable to have Dr. Fernandez reevaluate him on Friday and consider possible stent placement while he is here.
[2019-10-23] MEDS ORDERED: lisinopriL 10 MG TAB PO SCH (21:00)
[2019-10-25] MEDS ORDERED: FUROSEMIDE 20 MG TAB PO SCH (09:00)
== END 2019-10-23 18:27 | disposition short-term general hospital (02) | DRG 253 ==
LOC: M ED 01:37 → EDBD 01:37 → M ED INP 03:54 → ENRESERVTM 04:04 → ENRESERVDT 04:04 → M PCU 05:00
PROVIDERS: ADMIT General Practice; ATTEND Internal Medicine
PROC: 30233N1 Transfusion of Nonautologous Red Blood Cells into Peripheral Vein, Percutaneous Approach (ICD-10-PCS; principal; 2019-10-23)
DX: K92.0 Hematemesis (principal); I11.0 Hypertensive heart disease with heart failure; I50.22 Chronic systolic (congestive) heart failure; C15.9 Malignant neoplasm of esophagus, unspecified; Z93.1 Gastrostomy status; I48.91 Unspecified atrial fibrillation; Z79.82 Long term (current) use of aspirin; Z79.899 Other long term (current) drug therapy; F10.10 Alcohol abuse, uncomplicated

== ENCOUNTER → 2019-10-27 | Outpatient (CLI) | payer OTHER ==
[~2019-10-27] MED LIST changes: +ENSULIQ8 PO; +FURO20TA2 PO; +MI-A80CH PO; +MIRA3350 PO; +MULTCAP PO; +NON-325T5 PO; +PROT1TAB2 PO
[2019-10-27 07:47] LABS: BASO % 0.4 % (0.0-1.0); EOS # 0.1 10^3/uL (0.0-0.5); EOS % 2.5 % (0.0-3.0); HEMATOCRIT 24.3 % (42.0-52.0); HEMOGLOBIN 7.7 g/dl (13.5-17.5); LYMPH # 0.8 10^3/uL (1.5-5.0); LYMPH % 14.7 % (24.0-44.0); MEAN CORPUSCULAR HEMOGLOBIN 27.5 pg (27.0-33.0); MEAN CORPUSCULAR HGB CONC 31.7 g/dl (32.0-36.5); MEAN CORPUSCULAR VOLUME 86.8 fl (80.0-96.0); MONO # 0.6 10^3/uL (0.0-0.8); MONO % 10.9 % (0.0-5.0); NEUTROPHILS # 3.8 10^3/uL (1.5-8.5); NEUTROPHILS % 71.3 % (36.0-66.0); PLATELET COUNT, AUTOMATED 209 10^3/uL (150-450); WHITE BLOOD COUNT 5.3 10^3/uL (4.0-10.0)
[2019-10-27 08:09] LABS: ALBUMIN 3.3 GM/DL (3.2-5.2); ALT/SGPT 15 U/L (12-78); BILIRUBIN,TOTAL 0.3 MG/DL (0.2-1.0); BLOOD UREA NITROGEN 19 MG/DL (7-18); CALCIUM LEVEL 8.5 MG/DL (8.8-10.2); CARBON DIOXIDE LEVEL 29 MEQ/L (21-32); CHLORIDE LEVEL 101 MEQ/L (98-107); CREATININE FOR GFR 1.01 MG/DL (0.70-1.30); GLOMERULAR FILTRATION RATE > 60.0 (>49); GLUCOSE, FASTING 123 MG/DL (70-100); POTASSIUM SERUM 4.3 MEQ/L (3.5-5.1); SODIUM LEVEL 137 MEQ/L (136-145); TOTAL PROTEIN 6.8 GM/DL (6.4-8.2)
== END ==
LOC: M LAB 07:14
PROVIDERS: ATTEND Internal Medicine Medical Oncology
DX: C15.9 Malignant neoplasm of esophagus, unspecified (principal)

== ENCOUNTER → 2019-11-02 | Outpatient (POV) | payer OTHER ==
[~2019-11-02] MED LIST changes: +FISH1000 PO
--- NOTE | 2019-11-03 14:22 | IRPN ---
[facility] IR Progress Note IR Progress Note DATE: Nov 02, 2019 Teleconsult FOLLOW-UP: Status post port and G tube placement. Patient states both doing well. Port has been used without issues. No pain, fever, or discharge at site. G tube flushed every day without issues. ON EXAMINATION: video conference not available on patient side. IMPRESSION: Doing well status post port and Gastrostomy placement. Advised patient on mixing ensure with water and doing multiple small feeds throughout the day to supplement oral intake as needed. Further guidance on calorie intake necessary from Rad Onc and medical oncology is appreciated. Thank you for this referral Allergies Coded Allergies: No Known Drug Allergies (Verified Allergy, Unknown, 01/21/19) CHARLEY VELEZ MD Nov 03, 2019 14:22
== END ==
LOC: M TMIRPOV 11:30
PROVIDERS: ATTEND Radiology Diagnostic Radiology
DX: Z45.2 Encounter for adjustment and management of vascular access device (principal); Z43.1 Encounter for attention to gastrostomy

== ENCOUNTER → 2019-11-04 | Outpatient (RCR) | payer OTHER ==
--- NOTE | 2019-10-19 10:57 | RADONC ---
RADIATION ONCOLOGY SIMULATION NOTE: DATE: 10/18/2019 CHART NUMBER: [id number] Mr. Patel was taken to the CT scan for CT simulation of his gastroesophageal junction field. CT was accomplished without difficulty or discomfort. Radiation treatment planning is underway and radiation treatments will begin subsequently. An immobilization device was created and be used out the course of treatment. It was created without difficulty or discomfort. I was physically present throughout the course of CT simulation.
--- NOTE | 2019-11-02 08:59 | RADONC ---
RADIATION ONCOLOGY PROGRESS NOTE DATE: 11/01/2019 CHART NUMBER: [id number] PROGRESS NOTE: Mr. Patel is presently at a dose of 720 cGy to his GE junction and is tolerating treatments quite well at this point with no complaints related to his radiation therapy. The patient is having no significant new GI problems. PHYSICAL EXAMINATION: The patient's skin is in good condition with no evidence of moist or dry desquamation. The remainder of his physical exam remains unchanged. Mr. Patel is tolerating treatments quite well and radiation will continue as scheduled.
== END ==
LOC: M ONCR 10-19 10:27
PROVIDERS: ATTEND Radiology Radiation Oncology
DX: C16.0 Malignant neoplasm of cardia (principal)

== ENCOUNTER 2019-12-01 09:31 | Outpatient (RCR) | payer OTHER ==
--- NOTE | 2019-11-11 09:36 | RADONC ---
RADIATION ONCOLOGY PROGRESS NOTE DATE: 11/08/2019 CHART #: [id number] Mr. Patel is presently at a dose of 1620 cGy to his GE junction and is tolerating treatments quite well at this point with no complaints related to his radiation therapy. He is having no significant nausea. He is having no bowel difficulties. REVIEW OF SYSTEMS: The patient's review of systems was positive for some nausea which is controlled with medication. It is otherwise noncontributory. Denies nausea, vomiting, fevers, chills, night sweats, diplopia, headaches, anxiety or depression, anorexia, weight loss, visual disturbances, chest pain, urinary or bowel difficulties, bone pain, or neurological problems. PHYSICAL EXAMINATION: The patient's skin is in good condition with no evidence of moist or dry desquamation. The remainder of his physical exam remains unchanged. Mr. Patel is tolerating treatments quite well and radiation will continue as scheduled.
--- NOTE | 2019-11-17 06:38 | RADONC ---
RADIATION ONCOLOGY PROGRESS NOTE DATE: 11/15/2019 CHART #: [id number] Mr. Patel is presently at a dose of 2520 cGy to his GE junction and is tolerating treatments quite well at this point with no difficulties related to his radiation therapy. He is having no pain or discomfort. REVIEW OF SYSTEMS: The patient's review of systems is noncontributory. Denies nausea, vomiting, fevers, chills, night sweats, diplopia, headaches, anxiety or depression, anorexia, weight loss, visual disturbances, chest pain, urinary or bowel difficulties, bone pain, or neurological problems. PHYSICAL EXAMINATION: The patient's skin is in good condition with no evidence of moist or dry desquamation. The remainder of his physical exam remains unchanged. Mr. Patel is tolerating treatments quite well and radiation will continue as scheduled.
--- NOTE | 2019-11-25 08:33 | RADONC ---
RADIATION ONCOLOGY PROGRESS NOTE: DATE: 11/22/2019 CHART NUMBER: [id number] Mr. Patel is presently at a dose of 3420 cGy to his gastroesophageal junction and is tolerating treatments quite well at this point with no significant difficulties related to his radiation therapy. He is having no pain or discomfort. REVIEW OF SYSTEMS: The patient's review of systems is noncontributory. He denies nausea, vomiting, fevers, chills, night sweats, diplopia, headaches, anxiety or depression, anorexia, weight loss, visual disturbances, chest pain, urinary or bowel difficulties, bone pain, or neurological problems. PHYSICAL EXAMINATION: The patient's skin is in good condition with no evidence of moist or dry desquamation. The remainder of his physical exam remains unchanged. Mr. Patel is tolerating treatments quite well and radiation will continue as scheduled. I had a very lengthy discussion with him at this time and I let him know that it is time to finally make a decision. He was seen by Dr. Loki Branch MD at [facility] and by Dr. Charles Henry MD at [facility]. I said at this point, he has had many weeks to think about this and it is time to make a decision so that we can arrange for surgical workup and evaluation. I have worked with both physicians over many years and have no hesitation recommending either one. The patient has agreed to speak with his ivy and get back to me tomorrow with a final decision. [facility]ENTER[facility]ía
== END 2019-12-05 ==
LOC: M ONCR 09:31
PROVIDERS: ATTEND Radiology Radiation Oncology
DX: C16.0 Malignant neoplasm of cardia (principal)

== ENCOUNTER → 2019-12-06 | Outpatient (CLI) | payer OTHER | LOC: M LABSMTC 10:26 | PROVIDERS: ATTEND Anesthesiology | DX: Z01.818 Encounter for other preprocedural examination (principal); Z11.59 Encounter for screening for other viral diseases | CPT/HCPCS: C9803; U0003 ==

== ENCOUNTER 2019-12-09 15:06 | Day surgery (SDC) | payer OTHER ==
[~2019-12-09] VITALS: Ht 177.8 cm; Wt 87.5 kg
[~2019-12-09 15:06] MED LIST changes: +LIDOCAINE 2% 100MG/5ML SDV (FOR ANES.) As Ordered ONE; +NS 1,000 ML IV ONE; +propofoL 200 MG/20 ML VIAL As Ordered ONE
[2019-12-09] MEDS ORDERED: propofoL 200 MG/20 ML VIAL As Ordered ONE ×2 (15:22→16:06)
[2019-12-09] MEDS ORDERED: LABETALOL 100MG/20ML VIAL As Ordered ONE (15:53)
--- NOTE | 2019-12-09 16:29 | ROOR ---
Patient Name: Dusty Patel Procedure Date: 12/09/2019 3:45 PM Date of : 1955 Age: 64 Room: [facility] Gender: Male Note Status: Finalized Procedure: Colonoscopy Indications: Rectal bleeding Providers: Alfa Miller MD Referring MD: REAGAN Davis Requesting Provider: Medicines: Monitored Anesthesia Care Complications: No immediate complications. Procedure: Pre-Anesthesia Assessment: - Prior to the procedure, a History and Physical was performed, and patient medications and allergies were reviewed. The patient is competent. The risks and benefits of the procedure and the sedation options and risks were discussed with the patient. All questions were answered and informed consent was obtained. Patient identification and proposed procedure were verified by the physician, the nurse and the intellectual property counsel in the procedure room. Mental Status Examination: alert and oriented. Airway Examination: normal oropharyngeal airway and neck mobility. Prophylactic Antibiotics: The patient does not require prophylactic antibiotics. Prior Anticoagulants: The patient has taken no previous anticoagulant or antiplatelet agents. ASA Grade Assessment: III - A patient with severe systemic disease. After reviewing the risks and benefits, the patient was deemed in satisfactory condition to undergo the procedure. The anesthesia plan was to use monitored anesthesia care (MAC). Immediately prior to administration of medications, the patient was re-assessed for adequacy to receive sedatives. The heart rate, respiratory rate, oxygen saturations, blood pressure, adequacy of pulmonary ventilation, and response to care were monitored throughout the procedure. The physical status of the patient was re-assessed after the procedure. The Colonoscope was introduced through the anus and advanced to the cecum, identified by appendiceal orifice and ileocecal valve. The colonoscopy was performed without difficulty. The patient tolerated the procedure well. The quality of the bowel preparation was good. Findings: The perianal and digital rectal examinations were normal. Many medium-mouthed diverticula were found in the sigmoid colon. The exam was otherwise without abnormality. Impression: - Diverticulosis in the sigmoid colon. - The examination was otherwise normal. - No specimens collected. Recommendation: - Discharge patient to home. - Resume previous diet. - Continue present medications. Alfa Miller MD Alfa Miller MD 12/09/2019 4:29:08 PM Electronically signed by Alfa Miller MD Number of Addenda: 0 Note Initiated On: 12/09/2019 3:45 PM Estimated Blood Loss: Estimated blood loss: none.
[2019-12-09 17:00] VITALS: BP 140/84
== END 2019-12-09 17:15 | disposition home or self-care (01) ==
LOC: M OPP 15:06
PROVIDERS: ATTEND Surgery
DX: K57.30 Diverticulosis of large intestine without perforation or abscess without bleeding (principal); K62.5 Hemorrhage of anus and rectum; C15.9 Malignant neoplasm of esophagus, unspecified; Z79.82 Long term (current) use of aspirin; Z79.899 Other long term (current) drug therapy

== ENCOUNTER → 2019-12-22 | Outpatient (CLI) | payer OTHER ==
[~2019-12-22] MED LIST changes: +GASTROGRAFIN SOLUTION 30ML (Q9963) As Ordered ONE; +ISOVUE-370 76% 100ML VIAL As Ordered ONE; -LIDOCAINE 2% 100MG/5ML SDV (FOR ANES.) As Ordered ONE; -NS 1,000 ML IV ONE; -propofoL 200 MG/20 ML VIAL As Ordered ONE
--- NOTE | 2019-12-22 13:13 | REP ---
REASON FOR EXAM: History of esophageal carcinoma. COMPARISON EXAM: 09/04/2019 CONTRAST: 100 mL Isovue-370. For description of the lung bases, please see CT chest report made same day. The liver, gallbladder, spleen, pancreas, adrenal glands, and kidneys are essentially unchanged and again seen to be within normal limits. There is an incidental small left renal cyst, status quo. The previously enlarged lymph node in the gastrohepatic ligament which measured 2 cm on the prior exam has reduced in size significantly, today having a maximal dimension of 1.1 cm and being of decreased density. The abdominal aorta and para-aortic regions are within normal limits. The intra-abdominal and intrapelvic bowel loops and their mesenteries are within normal limits. There is no evidence of an intra-abdominal or intrapelvic mass or adenopathy. Incidentally, there is a telescoping loop of small bowel in the left upper quadrant, likely a transient small bowel intussusception. There is no free fluid or free air in the abdomen or pelvis. Bone window technique thought the examination shows no change in the osseous structures. IMPRESSION: 1. Improved gastrohepatic ligament, as described above. 2. Likely incidental small bowel finding, as described above. 3. There is a PEG tube noted. 4. Other findings as described above. Electronically Signed by Milind Smith DO 12/22/2019 01:24 P
--- NOTE | 2019-12-22 13:38 | REP ---
REASON FOR EXAM: History of esophageal carcinoma. COMPARISON: 09/06/2019 the only prior. CONTRAST: 100 mL Isovue 370. The mediastinum and pulmonary antony are essentially unchanged. There are multiple lymph nodes which are nonenlarged, although round and stable. There are no pleural or pericardial effusions. For a description of the imaged upper abdomen, see abdominal and pelvis CT report made the same day. Bone window technique throughout the exam shows the osseous structures to be stable and intact. Evaluation of the lung vargas shows the small 7 mm sized nodule seen previously in the left upper lobe to have resolved. There are a few stable areas of pleural thickening. No new abnormal nodules, masses or opacities have developed. IMPRESSION: 1. Lymph nodes as described above. 2. Resolution of the previously present 17 mm sized nodule in the left upper lobe. 3. Other stable changes. No evidence of acute abnormality. Electronically Signed by Milind Smith DO 12/22/2019 05:02 P
== END ==
LOC: M RAD 09:30
PROVIDERS: ATTEND Internal Medicine Medical Oncology
DX: C15.9 Malignant neoplasm of esophagus, unspecified (principal)
CPT/HCPCS: 71260; 74177; Q9963; Q9967

== ENCOUNTER → 2020-01-05 | Outpatient (CLI) | payer OTHER ==
[~2020-01-05] MED LIST changes: -GASTROGRAFIN SOLUTION 30ML (Q9963) As Ordered ONE; -ISOVUE-370 76% 100ML VIAL As Ordered ONE
--- NOTE | 2020-01-05 10:40 | RADONC ---
RADIATION ONCOLOGY DATE: 01/05/2020 CHART NUMBER: [id number] Mr. 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 He completed neoadjuvant chemo RT on 12/01/2019. INTERVAL HISTORY: He had a CT on 12/22/2019 which showed improved GE ligament. CT of the chest reported resolution of the previously 17 mm size nodule in the left upper lobe and otherwise, stable changes. REVIEW OF SYSTEMS: He said he has no problems with swallowing but he experiences pain after swallowing. He said he gained some weight. He denies nausea, vomiting, headache, chills, or GI symptoms. PHYSICAL EXAMINATION: ECOG performance status is 0. Vital Signs: Weight 203.2 pounds. Temperature 98.3, pulse 57, respiration 18, blood pressure 144/89, oxygen saturation is 99% in room air. There are no palpable lymphadenopathies in the neck. PEG in place so is Mediport on the right chest. Lungs are clear. There is no bony tenderness. The rest of the physical examination is unchanged. 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 CT scan on 12/22/2019 showed some improvement. He is scheduled for PET/CT and he is going to see Dr. Henry for evaluation of surgery. He was advised continuous followup care with his physicians involved and he will also contact us after surgery. edited: 01/25/2020 1035 tkf TOM
== END ==
LOC: M ONCR 09:54
PROVIDERS: ATTEND Radiology Radiation Oncology
DX: C16.0 Malignant neoplasm of cardia (principal)

== ENCOUNTER → 2020-01-25 | Outpatient (CLI) | payer OTHER ==
[~2020-01-25] MED LIST changes: -ASPI81TA85 PO; +ASPI81TA86 PO; +PANT40TA29 PO; -PANT40TA3 PO
--- NOTE | 2020-01-25 16:46 | REP ---
PET/CT: HISTORY: Restaging esophageal carcinoma. COMPARISONS: Comparison PET/CT study September 28, 2019. TECHNIQUE: 51 minutes following the intravenous injection of a 9.50 mCi dose of F-18 FDG, three-dimensional PET scintigraphy is acquired from the skull base to the proximal thighs. Triplanar noncontrast CT scanning is acquired through the same anatomic range for attenuation correction, and image registration with scan parameters optimized to minimize radiation exposure to the patient. PET scintigraphy and CT datasets were fused and displayed on a workstation with multiplanar and projection display capability. PET/CT FINDINGS: The previously noted gastroesophageal junction hypermetabolic mass is no longer visible. No abnormal hypermetabolic uptake is seen at the GE junction. The adjacent celiac axis lymph node is decreased, subcentimeter in size, and without observable metabolic uptake. No other evidence of adenopathy or upper abdominal hypermetabolic uptake. No lesion is seen in the liver. No abnormal uptake is seen in the abdomen or pelvis. There are bilateral lower lobe infiltrates in the lung vargas, new since the recent chest CT study of December 22, 2019, consistent with inflammatory disease. These have a bilateral paraspinal and symmetric distribution at the lung bases and I suspect early postradiation change. There is mildly hypermetabolic uptake in this pulmonary parenchymal disease, maximum SUV value in the left lower lobe infiltrate is 3.7 and that in the right 2.4. In addition, there is minimal metabolic activity in the bilateral hilar, subcarinal, and pretracheal mediastinal lymph nodes. Maximum standard uptake value in these lymph nodes ranges from 3.07 to 3.94. These lymph nodes are not morphologically changed from September 06, [address] study. They were not metabolically active previously. They are most likely reactive. No other abnormal hypermetabolic uptake is seen in the chest. Head and neck soft tissues are unremarkable. IMPRESSION: Improved upper abdominal findings. There is no longer abnormal hypermetabolic activity in the upper abdomen. There are new mildly hypermetabolic infiltrates in the left and right lower lobe in paravertebral distribution suggesting early postradiation change or inflammatory changes. There are mildly metabolically active bilateral hilar and mediastinal lymph nodes, as above. Electronically Signed by Alexsanedr Moscoso MD 01/25/2020 05:00 P
== END ==
LOC: M PLARAD 10:50
PROVIDERS: ATTEND Internal Medicine Medical Oncology
DX: C15.9 Malignant neoplasm of esophagus, unspecified (principal); R91.8 Other nonspecific abnormal finding of lung field
CPT/HCPCS: 78815; A9552

== ENCOUNTER → 2020-12-06 | Outpatient (CLI) | payer OTHER ==
[~2020-12-06] MED LIST changes: +ACET32TAB PO; -LISI-542 PO; +LISI-898 PO; +LISI10TA22 PO; -LISI10TA4 PO; -NON-325T5 PO
== END ==
LOC: M LABSMTC 11:27
PROVIDERS: ATTEND Anesthesiology
DX: Z01.812 Encounter for preprocedural laboratory examination (principal); Z20.822 Contact with and (suspected) exposure to COVID-19

== ENCOUNTER 2020-12-11 11:16 | Day surgery (SDC) | payer OTHER ==
[~2020-12-11] VITALS: Ht 177.8 cm; Wt 83.5 kg
[~2020-12-11 11:16] MED LIST changes: +NS 1,000 ML IV ONE
[2020-12-11] MEDS ORDERED: fentaNYL 100 MCG/2 ML INJECTION (J3010) As Ordered ONE (13:08)
[2020-12-11] MEDS ORDERED: propofoL 200 MG/20 ML VIAL As Ordered ONE (13:08)
[2020-12-11] MEDS ORDERED: LIDOCAINE 2% 100MG/5ML SDV (FOR ANES.) As Ordered ONE (13:08)
--- NOTE | 2020-12-11 13:44 | ROOR ---
Patient Name: Dusty Patel Procedure Date: 12/11/2020 1:19 PM Date of : 1955 Age: 65 Room: [facility] Gender: Male Note Status: Finalized Procedure: Upper GI endoscopy Indications: Dysphagia, Follow-up of malignant esophageal tumor Providers: Tin Fernandez MD Referring MD: REAGAN Davis Requesting Provider: Medicines: Monitored Anesthesia Care Complications: No immediate complications. Procedure: Pre-Anesthesia Assessment: - Prior to the procedure, a History and Physical was performed, and patient medications and allergies were reviewed. The patient is competent. The risks and benefits of the procedure and the sedation options and risks were discussed with the patient. All questions were answered and informed consent was obtained. Patient identification and proposed procedure were verified by the physician, the nurse and the anesthesiologist in the procedure room. Mental Status Examination: alert and oriented. Airway Examination: normal oropharyngeal airway and neck mobility. Respiratory Examination: clear to auscultation. CV Examination: normal. Prophylactic Antibiotics: The patient does not require prophylactic antibiotics. Prior Anticoagulants: The patient has taken no previous anticoagulant or antiplatelet agents. ASA Grade Assessment: III - A patient with severe systemic disease. After reviewing the risks and benefits, the patient was deemed in satisfactory condition to undergo the procedure. The anesthesia plan was to use monitored anesthesia care (MAC). Immediately prior to administration of medications, the patient was re-assessed for adequacy to receive sedatives. The heart rate, respiratory rate, oxygen saturations, blood pressure, adequacy of pulmonary ventilation, and response to care were monitored throughout the procedure. The physical status of the patient was re-assessed after the procedure. The Endoscope was introduced through the mouth, and advanced to the second part of duodenum. The upper GI endoscopy was accomplished without difficulty. The patient tolerated the procedure well. Findings: A large, ulcerating mass with no bleeding and stigmata of recent bleeding was found in the distal esophagus and at the gastroesophageal junction. The mass was partially obstructing and circumferential. Biopsies were taken with a cold forceps for histology. Verification of patient identification for the specimen was done by the physician and nurse using the patient's name, date and medical record number. Estimated blood loss was minimal. There was evidence of an intact gastrostomy with a patent G-tube present in the gastric body. This was characterized by healthy appearing mucosa and congestion. A large amount of food (residue) was found in the gastric body and in the gastric antrum. No gross lesions were noted in the duodenal bulb. Impression: - Partially obstructing, likely malignant esophageal tumor was found at the gastroesophageal junction. Biopsied. - Intact gastrostomy with a patent G-tube present characterized by healthy appearing mucosa and congestion. - A large amount of food (residue) in the stomach. - No gross lesions in the duodenal bulb. Recommendation: - Patient has a contact number available for emergencies. The signs and symptoms of potential delayed complications were discussed with the patient. Return to normal activities tomorrow. Written discharge instructions were provided to the patient. - Pureed diet. - Continue present medications. - Await pathology results. - Refer to an oncologist. - Return to primary care physician. Procedure Code(s): --- Professional --- 38556, Esophagogastroduodenoscopy, flexible, transoral; with biopsy, single or multiple Diagnosis Code(s): --- Professional --- D49.0, Neoplasm of unspecified behavior of digestive system Z93.1, Gastrostomy status R13.10, Dysphagia, unspecified C15.9, Malignant neoplasm of esophagus, unspecified CPT copyright 2019 [employer]. All rights reserved. The codes documented in this report are preliminary and upon event coordinator marketing and sales review may be revised to meet current compliance requirements. Tin Fernandez MD Tin Fernandez MD 12/11/2020 1:43:47 PM Electronically signed by Tin Fernandez MD Number of Addenda: 0 Note Initiated On: 12/11/2020 1:19 PM Estimated Blood Loss: Estimated blood loss was minimal.
[2020-12-11 14:30] VITALS: BP 118/63
== END 2020-12-11 14:10 | disposition home or self-care (01) ==
LOC: M OPP 11:16
PROVIDERS: ATTEND Internal Medicine Gastroenterology
DX: C15.9 Malignant neoplasm of esophagus, unspecified (principal); Z93.1 Gastrostomy status; R13.10 Dysphagia, unspecified; K21.9 Gastro-esophageal reflux disease without esophagitis; I50.9 Heart failure, unspecified; I48.91 Unspecified atrial fibrillation; Z79.82 Long term (current) use of aspirin; Z79.899 Other long term (current) drug therapy; Z92.3 Personal history of irradiation
CPT/HCPCS: 43239; 88305; 88342; J3010

== ENCOUNTER 2020-12-26 08:09 | Emergency (ER) | payer OTHER ==
[~2020-12-26] VITALS: Ht 177.8 cm; Wt 83.7 kg
[~2020-12-26 08:09] MED LIST changes: +ASPI81CH33 PO; +ATOR1TAB19 PO; +LISI2.5T8 PO; -NS 1,000 ML IV ONE
[2020-12-26] MEDS ORDERED: NS 1,000 ML IV ONE (08:30)
--- NOTE | 2020-12-26 08:38 | REP ---
INDICATION: CHEST PAIN. COMPARISON: 09/04/2019. TECHNIQUE: Portable FINDINGS: The technique utilized in obtaining the radiograph has magnified the cardiac silhouette and accentuated the interstitial markings. The superior mediastinal structures are midline. The cardiac silhouette is unremarkable in size, shape, and position. The diaphragmatic surfaces of the lungs are regular, and the costophrenic angles are clear. The pulmonary vargas are clear. The imaged osseous structures are intact. Since the last exam a MediPort device has been placed entering from the right the tip of which is in the superior vena cava. IMPRESSION: There is no acute cardiopulmonary disease. <Electronically signed by Milind Smith > 12/26/20 [id number]
[2020-12-26 08:41] LABS: BASO % 0.5 % (0.0-1.0); EOS # 0.3 10^3/uL (0.0-0.5); EOS % 3.2 % (0.0-3.0); HEMATOCRIT 34.6 % (42.0-52.0); HEMOGLOBIN 10.8 g/dl (13.5-17.5); LYMPH # 0.9 10^3/uL (1.5-5.0); LYMPH % 10.4 % (24.0-44.0); MEAN CORPUSCULAR HEMOGLOBIN 27.5 pg (27.0-33.0); MEAN CORPUSCULAR HGB CONC 31.2 g/dl (32.0-36.5); MONO # 0.7 10^3/uL (0.0-0.8); MONO % 8.6 % (2.0-8.0); NEUTROPHILS # 6.3 10^3/uL (1.5-8.5); NEUTROPHILS % 76.8 % (36.0-66.0); PLATELET COUNT, AUTOMATED 268 10^3/uL (150-450); RED BLOOD COUNT 3.93 10^6/uL (4.30-6.10); WHITE BLOOD COUNT 8.3 10^3/uL (4.0-10.0)
[2020-12-26 08:45] LABS: VENOUS BASE EXCESS -1.4 (-2.0-2.0); VENOUS HCO3 24.5 MEQ/L (23.0-27.0); VENOUS O2 SATURATION 98.1 % (60.0-80.0); VENOUS PARTIAL PRESSURE O2 132.2 mmHg (30.0-50.0); VENOUS PH 7.345 UNITS (7.330-7.430); VENOUS STANDARD HCO3 23.4 MEQ/L
[2020-12-26 08:52] LABS: INR 1.27; PROTHROMBIN TIME 16.2 SECONDS (12.5-14.3)
[2020-12-26 08:53] LABS: PARTIAL THROMBOPLASTIN TIME 26.4 SECONDS (24.2-38.5)
[2020-12-26] MEDS ORDERED: ONDANSETRON 4MG/2ML VIAL IV ONE (08:55)
[2020-12-26] MEDS ORDERED: ONDANSETRON 4MG/2ML VIAL As Ordered ONE (08:55)
[2020-12-26] MEDS ORDERED: AMIODARONE HCL 150 MG in IV 1 EA IV STA (08:55)
--- NOTE | 2020-12-26 09:11 | ECGEPIP ---
[facility] - ED Test Date: 2020-12-26 Pat Name: IZAIAH MEHTA Department: Room: - Gender: Male Manager Fine: LR : 1955 Requested By: KYLIE Levi Order Number: [id number] Reading MD: Antonio Miranda Measurements Intervals [place] Rate: 127 P: [place]: QRS: 125 QRSD: 90 T: 33 QT: 324 QTc: 470 Interpretive Statements Atrial fibrillation with rapid ventricular response with premature ventricular or aberrantly conducted complexes Left posterior fascicular block Anterior infarct , age undetermined INCOMPLETE RIGHT BUNDLE BRANCH BLOCK SIMILAR TO 01/22/19 Electronically Signed on 12-26-2020 9:10:40 EDT by Antonio Miranda
[2020-12-26 09:22] LABS: ALBUMIN 2.7 GM/DL (3.2-5.2); ALT/SGPT 27 U/L (12-78); BILIRUBIN,DIRECT 0.2 MG/DL (0.0-0.2); BILIRUBIN,TOTAL 0.4 MG/DL (0.2-1.0); BLOOD UREA NITROGEN 18 MG/DL (7-18); CALCIUM LEVEL 8.3 MG/DL (8.8-10.2); CARBON DIOXIDE LEVEL 25 MEQ/L (21-32); CHLORIDE LEVEL 101 MEQ/L (98-107); CK-MB VALUE MASS < 1.0 NG/ML (<3.6); CPK CREATINE PHOSPHOKINASE 53 U/L (39-308); CREATININE FOR GFR 0.83 MG/DL (0.70-1.30); DIGOXIN LEVEL 0.5 NG/ML (0.5-2.0); ETHYL ALCOHOL (ETHANOL) < 0.003 % (0.000-0.010); FREE T4 1.36 NG/DL (0.76-1.46); GLOMERULAR FILTRATION RATE > 60.0 (>49); GLUCOSE, FASTING 207 MG/DL (70-100); MB/CK RELATIVE INDEX 1.89 (< OR =4); NT-PRO BNP 1272 PG/ML (<125); SODIUM LEVEL 135 MEQ/L (136-145); TOTAL PROTEIN 6.5 GM/DL (6.4-8.2); TROPONIN I < 0.02 NG/ML (< 0.10)
[2020-12-26] MEDS ORDERED: MORPHINE 2 MG/ML 1ML VIAL (J2270) IV PRN (09:30)
[2020-12-26] MEDS ORDERED: ISOVUE-370 76% 100ML VIAL As Ordered ONE (09:32)
[2020-12-26 09:58] LABS: RSV AMPLIFICATION NEGATIVE (NEGATIVE)
--- NOTE | 2020-12-26 10:39 | REP ---
INDICATION: abdominal and chest pain, afib rvr COMPARISON: Standard CT of the chest 12/22/2019 TECHNIQUE: CT angiography after the intravenous administration of 75 cc Isovue 370 attention pulmonary arteries FINDINGS: There is excellent visualization of the pulmonary arterial vasculature. No focal filling defects are present that would be considered consistent with acute pulmonary emboli. There is mediastinal adenopathy. This has developed since the last exam. There is no pleural or pericardial effusion. For evaluation of the imaged upper abdomen see CT abdomen and pelvis report made same day. There is no significant change in appearance of the osseous structures. Evaluation of the lung vargas shows numerous scattered calcified and particularly noncalcified pulmonary nodules of various sizes and representing a significant change from the prior exam. IMPRESSION: 1. Mediastinal adenopathy has developed since the last exam. This needs to be correlated clinically with further evaluation. 2. Numerous new pulmonary nodules as described above suspicious for metastatic disease. 3. There is no evidence of a pulmonary embolism. Other findings as described above. <Electronically signed by Milind Smith > 12/26/20 [id number]
--- NOTE | 2020-12-26 10:46 | REP ---
INDICATION: abdominal and chest pain, Afib RVR COMPARISON: 12/22/2019. TECHNIQUE: CT Scan of the abdomen and pelvis was performed with intravenous administration of 100 cc of Isovue 370, without oral contrast. Sagittal and coronal reconstruction images are performed. FINDINGS: Lung bases: Multiple subcentimeter parenchymal nodules are seen in both lung bases. Liver: There are multiple new metastatic lesions throughout both lobes of the liver. These vary in size, the largest discrete nodule identified is in the inferior right lobe measuring 5.2 cm in diameter. Gallbladder: Not distended. Spleen: Normal. Adrenals: Normal. Pancreas: Normal. Kidneys: In the upper aspect of both kidneys there is loss of corticomedullary differentiation with ill-defined, regional somewhat hypodense areas in the cortex. This could indicate pyelonephritis or vasculitis. There is no hydronephrosis bilaterally. Small and large bowel: Gastrostomy tube is noted in place. Stomach is significantly distended. Free fluid: There is mild free fluid in the abdomen and pelvis. Abdominal aorta: No aneurysm or dissection. Adenopathy: Multiple mildly enlarged periaortic lymph nodes are seen. Appendix: Not inflamed. Osseous structures: There are degenerative changes of the spine without compression deformity. Pelvis: No mass. IMPRESSION: Multiple subcentimeter nodules in the visualized lung bases compatible with metastatic disease. Multiple new metastatic lesions diffusely the throughout the liver. Mild diffuse periaortic adenopathy. There are ill-defined hypodense areas in both kidneys with loss of corticomedullary differentiation suggesting pyelonephritis or vasculitis. Mild diffuse ascites. <Electronically signed by Rico Pedro > 12/26/20 [id number]
[2020-12-26] MEDS ORDERED: NS 500 ML IV ONE (10:55)
[2020-12-26 11:15] LABS: CK-MB VALUE MASS < 1.0 NG/ML (<3.6); CPK CREATINE PHOSPHOKINASE 43 U/L (39-308); MB/CK RELATIVE INDEX 2.33 (< OR =4); TROPONIN I 0.02 NG/ML (< 0.10)
[2020-12-26] MEDS ORDERED: VITMTA PO (11:36)
[2020-12-26] MEDS ORDERED: CARV12.5 PO (11:36)
[2020-12-26] MEDS ORDERED: DIGO0.123 PO (11:36)
[2020-12-26 13:12] LABS: MEAN CORPUSCULAR HEMOGLOBIN 27.4 pg (27.0-33.0); MEAN CORPUSCULAR HGB CONC 30.5 g/dl (32.0-36.5); MEAN CORPUSCULAR VOLUME 89.9 fl (80.0-96.0); PLATELET COUNT, AUTOMATED 184 10^3/uL (150-450); RED BLOOD COUNT 2.08 10^6/uL (4.30-6.10); WHITE BLOOD COUNT 8.6 10^3/uL (4.0-10.0)
[2020-12-26 13:17] LABS: HEMATOCRIT 18.7 % (42.0-52.0); HEMOGLOBIN 5.7 g/dl (13.5-17.5)
--- NOTE | 2020-12-26 13:37 | HPE ---
HISTORY AND PHYSICAL DATE OF ADMISSION: 12/26/2020 ADMITTING DIAGNOSIS: Hematemesis in a patient with known advanced distal esophageal adenocarcinoma. SECONDARY DIAGNOSIS: Atrial fibrillation, rapid ventricular response. HISTORY OF PRESENT ILLNESS: Dusty Patel is a 65-year-old patient of Dr. Fernandez's of [facility]. 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 It was invasive and poorly differentiated and was sent out for HER2 and CEP17. Copies per cell were 4.0 and 2.8 respectively. Ratio of HER2 to CEP17 was 1.4 which makes it indeterminate. This morning he woke up with hematemesis, says he has been having pain in his back for a day, increased abdominal distention and crampy abdominal pain and then began vomiting blood. This morning he came to the Emergency Room where he was found to be in atrial fibrillation (preexisting problem) with a rapid ventricular response of 100 to 120 though at times heart rate is controlled as low as 50. He is currently anticoagulated with Eliquis. As noted above he underwent an EGD on 12/11/[address] Fernandez. Partially obstructing esophageal tumor was found. He also has an intact gastrostomy tube which was patent. His past oncologic history shows he underwent concomitant chemoradiation with weekly carboplatin/paclitaxel in the neoadjuvant setting with radiation being completed December 2019. He had a PET scan 01/25/2020 and no abnormal hypermetabolic activity was seen. He was referred to Dr. Bernardo and Dr. Chaudhary at [facility] for evaluation of surgical intervention. The patient did not follow up on that surgical referral and has not undergone surgical evaluation. PAST MEDICAL HISTORY: His other past medical history shows congestive heart failure with reduced ejection fraction 30-35% on an echocardiogram from 01/2019. He has chronic atrial fibrillation on anticoagulation therapy with Eliquis. He has a history of hypertensive heart disease, history of alcohol abuse and continues to drink alcohol though he has reduced his intake. SURGICAL HISTORY: PEG tube placement and a MediPort placement. SOCIAL HISTORY: Heavy alcohol use in the past, currently just a few alcoholic drinks a day. No smoking. He is a retired [employer]. He has a girlfriend of 25 years duration. FAMILY HISTORY: Positive for coronary disease and diabetes. ALLERGIES: None known. MEDICATIONS: 1. Eliquis 5 mg twice a day. 2. Aspirin 81 mg daily. 3. Atorvastatin 10 mg daily. 4. Carvedilol 6.25 mg twice a day. 5. Digoxin 125 mcg daily. 6. Furosemide 25 mg daily. 7. Lisinopril 2.5 mg daily. 8. Protonix 40 mg twice a day. 9. Multivitamins. 10. [place]-3 fatty acid. REVIEW OF SYSTEMS: Denies orthopnea, palpitations, chest pain. He has chronic dyspnea. PHYSICAL EXAMINATION: VITAL SIGNS: Blood pressure 132/98, pulse between 50 and 120, respiratory rate 18, 100% O2 saturation on room air. He is afebrile. GENERAL APPEARANCE: Pale. He is holding his abdomen, complaining of discomfort. Alert and conversant. HEENT: Pupils equal, round, reactive to light. Tympanic membranes and oropharynx benign. NECK: No masses. LUNGS: Clear. HEART: Regular rate and rhythm. Tachycardic. ABDOMEN: Soft, slightly distended, diffusely tender epigastric area. No guarding or rebound or referred pain. Stool is reportedly heme negative. He has fresh bloody emesis in his emesis bag. EXTREMITIES: No clubbing, cyanosis, or edema. Normal strength in the arms and legs. Fairly preserved distal pulses in his feet, normal with radial ___. NEUROLOGIC: Grossly nonfocal. LABS: White count 8.8, hemoglobin 10.8 (hemoglobin on 12/19/2020 was 12.8). Platelets 268. Sodium 135, potassium 5, BUN 18, creatinine 0.8, glucose 207. Troponins negative times two. BNP is 1272. Of note he had a recent CA19-9 that was 82,673. A year ago on 01/19/2020 it was only 73. Blood alcohol is not detectable. COVID test was negative. INR is 1.27. Angiographic CT of the chest showed innumerable pulmonary nodules consistent with diffuse metastatic disease, mediastinal adenopathy which is new from CT from 12/22/2019. No pulmonary embolism. CT of the abdomen and pelvis showed multiple new metastatic lesions throughout the liver. Mild periaortic adenopathy. Mild diffuse ascites. Chest x-ray showed no active disease. ASSESSMENT: 1. Hematemesis. The patient looks pale. I have asked the ER to get consent for blood, type and screen, serial CBCs are in order. He is on Eliquis which obviously will be held. IV Protonix will be ordered. I discussed the case with Dr. Fernandez his conciliation court judge. He does not feel that endoscopic intervention is feasible due to the friability of the tumor. He is going to be discussed with Interventional Radiology whether they feel they can approach this today versus whether the patient should be transferred to [facility] for Interventional Radiology and possible palliative surgical intervention. I am waiting to hear back from him before initiating admission orders. 2. Atrial fibrillation. He has rates between 50 and 120. He is currently NPO. IV Digoxin could be used for rate control. IV Lopressor is also an option. 3. History of congestive heart failure, reduced ejection fraction. 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 In any case, cautious approach to IV hydration and monitoring for heart failure is advised. 4. Alcohol abuse. He is at risk of withdrawal symptoms. His alcohol intake is reportedly moderate recently. 5. Metastatic esophageal cancer. The patient has widespread metastases on scan. Apparently was planning to have a PET scan done next week as scheduled by his oncologist. Decision to admit versus transfer is currently pending and I am waiting to hear back from Dr. Fernandez.
[2020-12-26 13:43] LABS: HYPOCHROMASIA 1+; LYMPHOCYTES 9 % (16-44); MONOCYTES 1 % (0-5); NEUTROPHILS 85 % (28-66); PLATELET ESTIMATE NORMAL (NORMAL)
[2020-12-26 13:44] LABS: POLYCHROMASIA 1+
[2020-12-26] MEDS ORDERED: PROTHROMBIN COMPLEX CONCEN IV ONE (14:00)
[2020-12-26] MEDS ORDERED: PANTOPRAZOLE 40MG VIAL (C9113 PER 1) IV ONE (14:20)
[2020-12-26 14:24] VITALS: BP 89/58
[2020-12-26 14:40] VITALS: BP 89/54
[2020-12-26 14:45] VITALS: BP 99/56
--- NOTE | 2020-12-28 05:47 | ECGEPIP ---
[facility] - ED Test Date: 2020-12-26 Pat Name: IZAIAH MEHTA Department: Room: - Gender: Male Clinical Assistant: TIM : 1955 Requested By: KYLIE Levi Order Number: [id number] Reading MD: Antonio Miranda Measurements Intervals [place] Rate: 96 P: [place]: QRS: 37 QRSD: 100 T: 188 QT: 368 QTc: 464 Interpretive Statements Atrial fibrillation with premature ventricular or aberrantly conducted complexes Low voltage QRS Incomplete right bundle branch block Cannot rule out Inferior infarct , age undetermined NSTTW ABNORMALITY(S) RATE CHANGE COMPARED TO 12/26/20 Electronically Signed on 12-28-2020 5:47:51 EDT by Antonio Miranda
--- NOTE | 2020-12-29 14:12 | ED PDOC ---
Post-Departure Follow-Up radiology report faxed to clyde Zuniga Sarah MD Dec 29, 2020 14:12
== END 2020-12-26 14:50 | disposition short-term general hospital (02) ==
LOC: EDBD 08:09 → M ED 08:09
DX: D62 Acute posthemorrhagic anemia (principal); K92.2 Gastrointestinal hemorrhage, unspecified; R94.31 Abnormal electrocardiogram [ECG] [EKG]; C15.5 Malignant neoplasm of lower third of esophagus; C79.9 Secondary malignant neoplasm of unspecified site; I50.9 Heart failure, unspecified; I11.0 Hypertensive heart disease with heart failure; I48.91 Unspecified atrial fibrillation; F10.10 Alcohol abuse, uncomplicated; E78.5 Hyperlipidemia, unspecified; Z79.01 Long term (current) use of anticoagulants; Z79.82 Long term (current) use of aspirin; Z79.899 Other long term (current) drug therapy; Z93.1 Gastrostomy status; Z98.890 Other specified postprocedural states; Z82.49 Family history of ischemic heart disease and other diseases of the circulatory system; Z92.21 Personal history of antineoplastic chemotherapy; Z92.3 Personal history of irradiation; Z95.828 Presence of other vascular implants and grafts
CPT/HCPCS: 36430; 71045; 71275; 74177; 80047; 80048; 80076; 80162; 82077; 82550; 82553; 82803; 83880; 84439; 84443; 85025; 85610; 85730; 86850; 86900; 86901; 86920; 87040; 87077; 87186; 87631; 93005; 93041; 96361; 96374; 96375; 99285; C9113; C9132; J0282; J2270; J2405; P9016; Q9967

== ENCOUNTER → 2021-01-15 | Outpatient (REF) | payer OTHER ==
[~2021-01-15] MED LIST changes: -ATOR1TAB19 PO; +ATOR1TAB19 TF; +BETH5TAB2 TF; +DIGO0.123 PO; +ELIQ5TAB TF; +FOLI1TAB11 TF; -FURO20TA2 PO; +FURO20TA2 TF; +METO1TAB32 FT; +PANT40TA29 TF; +POTA8CAP10 TF; +RAPA4CAP TF; +SIME180C25 TF; +VITA100T28 TF; +VITMTA PO
[2021-01-15 11:35] LABS: BLOOD UREA NITROGEN 13 MG/DL (7-18); CALCIUM LEVEL 7.8 MG/DL (8.8-10.2); CARBON DIOXIDE LEVEL 31 MEQ/L (21-32); CHLORIDE LEVEL 99 MEQ/L (98-107); CREATININE FOR GFR 0.71 MG/DL (0.70-1.30); GLOMERULAR FILTRATION RATE > 60.0 (>49); GLUCOSE, FASTING 113 MG/DL (70-100); MAGNESIUM LEVEL 2.4 MG/DL (1.8-2.4); PHOSPHORUS LEVEL 2.9 MG/DL (2.5-4.9); POTASSIUM SERUM 4.9 MEQ/L (3.5-5.1); SODIUM LEVEL 135 MEQ/L (136-145)
== END ==
LOC: M LAB REF 10:28
DX: I50.9 Heart failure, unspecified (principal)

== ENCOUNTER → 2021-01-15 | Outpatient (CLI) | payer OTHER ==
[~2021-01-15] MED LIST changes: +ATIV1TAB10 PO; +DRON2.5C11 PO; +FERR1ELX TF; +HYOS125TA PO; +LANS30CA TF; -LISI-898 PO; +LISI5TAB11 PO; +MORP1SOL5 PO; +ONDA-84 PO; -ONDA8TAB10 PO; -PROC10TA4 PO; +PROC10TA5 PO; +[UNRECOGNIZED DRUG - CODE] PO
== END ==
LOC: M PLARAD 15:18
PROVIDERS: ATTEND Specialist
DX: C15.8 Malignant neoplasm of overlapping sites of esophagus (principal)
CPT/HCPCS: 78815; A9552

== ENCOUNTER 2021-01-29 20:33 | Inpatient (IN) | payer OTHER ==
[~2021-01-29] VITALS: Ht 177.8 cm; Wt 77.7 kg
[~2021-01-29 20:33] MED LIST changes: -ATIV1TAB10 PO; -DRON2.5C11 PO; -FERR1ELX TF; -HYOS125TA PO; -LANS30CA TF; +LISI-898 PO; -LISI5TAB11 PO; -MORP1SOL5 PO; -ONDA-84 PO; +ONDA8TAB10 PO; +PROC10TA4 PO; -PROC10TA5 PO; -[UNRECOGNIZED DRUG - CODE] PO
[2021-01-29 21:49] LABS: BASO % 0.2 % (0.0-1.0); EOS % 0.2 % (0.0-3.0); HEMATOCRIT 32.2 % (42.0-52.0); HEMOGLOBIN 10.3 g/dl (13.5-17.5); LYMPH # 0.3 10^3/uL (1.5-5.0); LYMPH % 1.7 % (24.0-44.0); MEAN CORPUSCULAR HEMOGLOBIN 27.5 pg (27.0-33.0); MEAN CORPUSCULAR VOLUME 85.9 fl (80.0-96.0); MONO # 0.5 10^3/uL (0.0-0.8); NEUTROPHILS # 15.7 10^3/uL (1.5-8.5); NEUTROPHILS % 94.4 % (36.0-66.0); RED BLOOD COUNT 3.75 10^6/uL (4.30-6.10); WHITE BLOOD COUNT 16.6 10^3/uL (4.0-10.0)
[2021-01-29 22:28] LABS: ALBUMIN 2.7 GM/DL (3.2-5.2); BILIRUBIN,DIRECT 0.4 MG/DL (0.0-0.2); BILIRUBIN,TOTAL 0.7 MG/DL (0.2-1.0); TOTAL PROTEIN 7.7 GM/DL (6.4-8.2)
[2021-01-29] MEDS ORDERED: ONDANSETRON 4MG/2ML VIAL IV ONE (23:00)
[2021-01-29] MEDS ORDERED: NS 2,330 ML in IV 1 EA IV ONE (23:00)
[2021-01-29] MEDS ORDERED: MORPHINE 4 MG/ML 1ML VIAL/SYRINGE (J2270) IV ONE (23:00)
[2021-01-29] MEDS ORDERED: ACETAMINOPHEN TAB 650MG DOSE (2X325MG) PO ONE (23:10)
[2021-01-29] MEDS ORDERED: ACETAMINOPHEN *IV* 650 MG in IV 1 EA IV ONE (23:20)
[2021-01-29] MEDS ORDERED: ACETAMINOPHEN SUSP DYE FREE 160 MG/5 ML UDC PO ONE (23:25)
[2021-01-30] MEDS ORDERED: ISOVUE-370 76% 100ML VIAL As Ordered ONE (00:12)
--- NOTE | 2021-01-30 01:35 | REPVR ---
PROCEDURE INFORMATION: Exam: XR Chest Exam date and time: 01/29/2021 11:46 PM Age: 65 years old Clinical indication: Fever; Additional info: Fever, esophageal/liver CA TECHNIQUE: Imaging protocol: XR of the chest. Views: 2 views. COMPARISON: Prior chest x-ray report of September 04, 2019. Prior images have not been made available for review at the time of this emergent interpretation, however were requested. FINDINGS: LUNGS and PLEURAL SPACE: The lungs are symmetrically expanded. Lung volumes are within normal limits. No evidence of peribronchial thickening. There is no consolidation, pneumothorax, or pleural effusion. No evidence of pulmonary vascular redistribution or overt edema. MEDIASTINUM: There is no mediastinal shift or widening. CARDIAC SILHOUETTE: Cardiothoracic ratio is within normal limits. BONY THORAX: No acute findings are seen. OTHER: A right sided chest port is noted with a single lead, the tip of which is at the level of the SVC/RA junction. IMPRESSION: No radiographic evidence for acute disease in the chest. Please refer to same-day abdominal CT for relevant findings related to the chest. Correlation with prior images when available is also advised. Electronically signed by: David Borrero On 01/30/2021 01:34:51 AM
--- NOTE | 2021-01-30 02:00 | REPVR ---
PROCEDURE INFORMATION: Exam: CT Abdomen And Pelvis With Contrast Exam date and time: 01/29/2021 10:57 PM Age: 65 years old Clinical indication: Abdominal pain; Generalized; Patient HX: Known esophageal CA w mets; Additional info: Known esophageal/liver CA, incr. Abd pain TECHNIQUE: Imaging protocol: Computed tomography of the abdomen and pelvis with contrast. Radiation optimization: All CT scans at this facility use at least one of these dose optimization techniques: automated exposure control; mA and/or kV adjustment per patient size (includes targeted exams where dose is matched to clinical indication); or iterative reconstruction. Contrast material: ISO; Contrast volume: 100 ml; Contrast route: INTRAVENOUS (IV); COMPARISON: Prior abdomen pelvic CT report of September 04, 2019. Prior images have not been made available for review at the time of this emergent interpretation, however were requested. FINDINGS: LUNG BASES: Trace dependent posterior pleural effusions or pleural thickening are noted. There is interstitial thickening at the lung bases which could be correlated for interstitial edema or interstitial infiltrate. Lymphangitic spread of malignancy cannot be excluded. There are innumerable bilateral pulmonary nodules involving all lobes bilaterally up to 5 mm in diameter. Compared to the prior report this is suggestive of severe worsening of metastatic disease. VASCULAR: Visualized cardiac size is at the upper end of normal. No abdominoaortic aneurysm, dissection, or retroperitoneal hematoma. There is calcified and noncalcified atherosclerosis which appears to be of mild severity. 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 Evaluation of the inferior vena cava for patency or the portal vein for patency is nondiagnostic on this study secondary to lack of appropriate contrast. PERITONEAL : No free air. Small to moderate amount of free fluid within the abdomen and pelvis. There is small nodularity along the anterior epigastric fat measuring up to 9 mm in short axis, consistent with enlarged lymph nodes. There is greater omental soft tissue nodule measuring 2.2 cm anterior to the liver consistent with metastatic disease. There is a 2.4 cm nodular density between the seminal vesicles in the pelvis, worrisome for metastatic disease. GI: The visualized distal esophagus has a diameter of 4 cm. There appears to be some wall thickening. Malignant involvement or esophagitis would be possibilities. The stomach is not sufficiently distended to evaluate wall thickening or exclude malignant involvement. The stomach contains some fluid and gas. There is a complex gas containing collection in the gastrohepatic ligament between the distal esophagus and gastric cardia measuring 7.4 cm in diameter containing multiple bubbles of gas and likely thickened fluid. Favored differential is a contained perforation, unless there has been recent postsurgical change with packing material. Consider endoscopy for confirmation, if necessary. This suspected contained perforation may be bordered by malignant soft tissue. Involvement of the stomach or liver cannot be excluded. There is a percutaneous gastrojejunostomy catheter in place appearing to be in good position. The tip is within a bowel loop in the left mid abdomen. Small bowel loops are slightly distended with fluid up to 3.3 cm in the upper pelvis. No point of transition is seen. This may be secondary to ileus. If there is suspicion for partial or developing obstruction, consider small-bowel follow-through for further evaluation. There is elevated mesenteric vascularity, mesenteric and omental edema throughout. Diffuse inflammatory changes and gastroenteritis cannot be excluded. Slightly prominent mesenteric lymph nodes are noted up to 10.8 mm in diameter. The significance of these nodes is uncertain. Follow-up is advised. Correlation with whole body PET would be helpful. Neoplastic nodes cannot be excluded. Scattered fecal material and gas within the distal colon and rectum could be correlated for mild distal constipation. The proximal colon appear slightly thick-walled. There is pericolonic stranding and edema. Mild colitis cannot be excluded. Clinical correlation is advised. The appendix does not appear inflamed. No evidence of acute diverticulitis is seen. HEPATOBILIARY, PANCREAS, SPLEEN: The liver is enlarged, measuring 24.2 cm in diameter. There are innumerable hepatic lesions throughout the right and left lobe, difficult to differentiate some lesions from one-another. Capsular involvement, extension outside of the capsule or into the gladis hepatis cannot be entirely excluded by this study. This appears to be new compared to description on the prior report. The gallbladder appears thick-walled. There is pericholecystic fluid. No calcified gallstones or biliary dilation seen. Mild cholecystitis cannot be excluded by this study. Differential would include hepatic disease and periportal edema. If there are symptoms related to the gallbladder, consider ultrasound. No pancreatic inflammation. Spleen not enlarged. ADRENALS, KIDNEYS, BLADDER, RETROPERITONEAL: Adrenals within normal limits. No hydronephrosis.. Symmetric renal enhancement. Nonspecific bilateral perinephric stranding. 7 mm hypodense left midpole renal lesion noted, too small to further characterize but possibly a cyst. Consistent with the [place] [employer]'s Incidental Findings Committee white paper (J Am Abena Radiol 2018): Any incidental cystic renal lesion classified in this report as too small to characterize or simple appearing is likely a benign cyst. No follow-up imaging is neccesary for these lesions per consensus recommendations based on imaging criteria if there is average risk of renal malignancy. The urinary bladder appears slightly thick-walled anteriorly. This could be correlated with any symptoms but may be artifactual. Mildly enlarged prostate impressing into the base of the bladder. Clinical follow-up is advised. There is para-aortic retroperitoneal lymphadenopathy with lymph nodes measuring up to 3.7 cm in maximal dimension. MUSCULOSKELETAL: Degenerative changes of the spine and pelvis are noted. No suspicious bone lesion is seen. IMPRESSION: Prior images have not been made available for direct comparison. Compared to the prior report there appears to be significant worsening. There is a complex 7.4cm collection with bubbles of gas along the gastrohepatic ligament worrisome for a contained perforation of the subdiaphragmatic gastrohepatic junction. No free intraperitoneal air is seen otherwise. There is scattered ascites. This and other gastrointestinal findings to be correlated clinically are discussed above in detail. There are innumerable hepatic lesions consistent with metastatic disease. There are soft tissue nodules within the abdomen and pelvis worrisome for metastatic disease. There is retroperitoneal lymphadenopathy worrisome for metastatic disease. There are innumerable pulmonary nodules at the visualized lung bases consistent with extensive pulmonary metastatic disease. Other findings discussed above in detail. Clinical correlation is advised. Consider whole body PET-CT. THIS REPORT CONTAINS FINDINGS THAT MAY BE CRITICAL TO PATIENT CARE. The findings were verbally communicated via telephone conference with HARPER SCHWAB at 1:57 AM EDT on 01/30/2021. The findings were acknowledged and understood. Electronically signed by: David Borrero On 01/30/2021 01:59:45 AM
[2021-01-30] MEDS ORDERED: PIPERACILLIN/TAZOBACTAM SOD 3.375 GM in D5W MINI-BAG PLUS 50 ML IV ONE (02:50)
[2021-01-30] MEDS ORDERED: MORPHINE 4 MG/ML 1ML VIAL/SYRINGE (J2270) IV ONE (03:10)
[2021-01-30] MEDS ORDERED: NS 1,000 ML IV ONE (03:35)
[2021-01-30] MEDS ORDERED: MORPHINE 2 MG/ML 1ML VIAL (J2270) IV PRN (03:35)
[2021-01-30] MEDS ORDERED: ATROPINE SULFATE 1% OP SOLN 2 ML BTL SL PRN (03:35)
[2021-01-30] MEDS ORDERED: SCOPOLAMINE 1MG TRANSDERMAL PATCH TOP PRN (03:35)
[2021-01-30] MEDS ORDERED: D5W/0.45% SODIUM CHLORIDE 1,000 ML IV SCH (03:35)
[2021-01-30] MEDS ORDERED: BISACODYL 10 MG SUPP PR PRN (03:35)
[2021-01-30] MEDS ORDERED: ACETAMINOPHEN 650 MG SUPP PR PRN (03:35)
[2021-01-30] MEDS ORDERED: LORazepam 2 MG/ML VIAL IV PRN (03:35)
[2021-01-30] MEDS ORDERED: ONDANSETRON 4MG/2ML VIAL IV PRN (03:35)
--- NOTE | 2021-01-30 04:21 | HPEPDOC ---
[facility] Medical History & Physical Date of Admission Jan 30, 2021 Date of Service: Jan 30, 2021 Attending Physician: RL LAM MD History and Physical CHIEF COMPLAINT: [65 y/o male c/o abd pain x4 days] HISTORY OF PRESENT ILLNESS: [This is a 65 y/o male with a pmh of HFrEF, a-fib, htn, gerd and esophageal cancer who presented to our ed on the night of 01/29 with a cc of abdominal and back pain increasing over the last 3-4 days. Upon workup in the emergency department, ct imaging showed an enclosed esophageal perforation as well as metastasis to the lungs and liver that was not on pet scan just a few weeks ago. Upon receiving news of these findings, patient and his have made decision to pursue DIGITAL ACCOUNT MANAGER status. Will admit to hospitalist service for pain and nausea control until patient can be setup with hospice.] PAST MEDICAL HISTORY: 1. [See HPI PAST SURGICAL HISTORY: 1. [PEG tube placement]. SOCIAL HISTORY: Tobacco use:[denies] ETOH: [denies] Illicit drug use: [denies] FAMILY HISTORY: Reviewed - none pertinent ALLERGIES: Please see below. REVIEW OF SYSTEMS: CONSTITUTIONAL: [Denies fevers, chills]. HEENT: [Denies uri sx]. CARDIOVASCULAR: [Denies chest pain, palpitations]. RESPIRATORY: [Denies sob]. GASTROINTESTINAL: [Admits to abd pain, n/v/d.]. GENITOURINARY: [Denies dysuria]. SKIN: [Denies rash]. MUSCULOSKELETAL: [Denies acute joint pain]. NEUROLOGICAL: [Denies syncope, paresthesias]. ENDOCRINE: [Denies hx of DM]. HEMATOLOGIC/LYMPHATIC: [Denies easy bruising]. HOME MEDICATIONS: Please see below. PHYSICAL EXAMINATION: VITAL SIGNS: Please see below. GENERAL APPEARANCE: [This is a 65 y/o ill appearing man who is alert and oriented to all questioning. He does not appear to be in any distress.]. HEENT: [No mass or lesion. EOMI. No scleral icterus. Nares patent. oral mucosa dry.]. CARDIOVASCULAR: [Regular rate, rhythm. No murmurs, rubs, gallops]. LUNGS: [Good air flow b/l. No wheezing, rales, rhonchi]. ABDOMEN: [Soft, tender throughout]. MUSCULOSKELETAL: [No joint deformity]. EXTREMITIES: [No pedal edema. No overlying skin changes. Pulses intact]. NEUROLOGICAL: [Speech clear. A+Ox3. No focal deficits.]. PSYCHIATRIC: [Mood and affect appear appropriate.]. LABORATORY DATA: See below. IMAGING: [CXR: FINDINGS: LUNGS and PLEURAL SPACE: The lungs are symmetrically expanded. Lung volumes are within normal limits. No evidence of peribronchial thickening. There is no consolidation, pneumothorax, or pleural effusion. No evidence of pulmonary vascular redistribution or overt edema. MEDIASTINUM: There is no mediastinal shift or widening. CARDIAC SILHOUETTE: Cardiothoracic ratio is within normal limits. BONY THORAX: No acute findings are seen. OTHER: A right sided chest port is noted with a single lead, the tip of which is at the level of the SVC/RA junction. IMPRESSION: No radiographic evidence for acute disease in the chest. Please refer to same-day abdominal CT for relevant findings related to the chest. Correlation with prior images when available is also advised. CT Abd/pelvis: FINDINGS: LUNG BASES: Trace dependent posterior pleural effusions or pleural thickening are noted. There is interstitial thickening at the lung bases which could be correlated for interstitial edema or interstitial infiltrate. Lymphangitic spread of malignancy cannot be excluded. There are innumerable bilateral pulmonary nodules involving all lobes bilaterally up to 5 mm in diameter. Compared to the prior report this is suggestive of severe worsening of metastatic disease. VASCULAR: Visualized cardiac size is at the upper end of normal. No abdominoaortic aneurysm, dissection, or retroperitoneal hematoma. There is calcified and noncalcified atherosclerosis which appears to be of mild severity. 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 Evaluation of the inferior vena cava for patency or the portal vein for patency is nondiagnostic on this study secondary to lack of appropriate contrast. PERITONEAL : No free air. Small to moderate amount of free fluid within the abdomen and pelvis. There is small nodularity along the anterior epigastric fat measuring up to 9 mm in short axis, consistent with enlarged lymph nodes. There is greater omental soft tissue nodule measuring 2.2 cm anterior to the liver consistent with metastatic disease. There is a 2.4 cm nodular density between the seminal vesicles in the pelvis, worrisome for metastatic disease. GI: The visualized distal esophagus has a diameter of 4 cm. There appears to be some wall thickening. Malignant involvement or esophagitis would be possibilities. The stomach is not sufficiently distended to evaluate wall thickening or exclude malignant involvement. The stomach contains some fluid and gas. There is a complex gas containing collection in the gastrohepatic ligament between the distal esophagus and gastric cardia measuring 7.4 cm in diameter containing multiple bubbles of gas and likely thickened fluid. Favored differential is a contained perforation, unless there has been recent postsurgical change with packing material. Consider endoscopy for confirmation, if necessary. This suspected contained perforation may be bordered by malignant soft tissue. Involvement of the stomach or liver cannot be excluded. There is a percutaneous gastrojejunostomy catheter in place appearing to be in good position. The tip is within a bowel loop in the left mid abdomen. Small bowel loops are slightly distended with fluid up to 3.3 cm in the upper pelvis. No point of transition is seen. This may be secondary to ileus. If there is suspicion for partial or developing obstruction, consider small-bowel follow-through for further evaluation. There is elevated mesenteric vascularity, mesenteric and omental edema throughout. Diffuse inflammatory changes and gastroenteritis cannot be excluded. Slightly prominent mesenteric lymph nodes are noted up to 10.8 mm in diameter. The significance of these nodes is uncertain. Follow-up is advised. Correlation with whole body PET would be helpful. Neoplastic nodes cannot be excluded. Scattered fecal material and gas within the distal colon and rectum could be correlated for mild distal constipation. The proximal colon appear slightly thick-walled. There is pericolonic stranding and edema. Mild colitis cannot be excluded. Clinical correlation is advised. The appendix does not appear inflamed. No evidence of acute diverticulitis is seen. HEPATOBILIARY, PANCREAS, SPLEEN: The liver is enlarged, measuring 24.2 cm in diameter. There are innumerable hepatic lesions throughout the right and left lobe, difficult to differentiate some lesions from one-another. Capsular involvement, extension outside of the capsule or into the gladis hepatis cannot be entirely excluded by this study. This appears to be new compared to description on the prior report. The gallbladder appears thick-walled. There is pericholecystic fluid. No calcified gallstones or biliary dilation seen. Mild cholecystitis cannot be excluded by this study. Differential would include hepatic disease and periportal edema. If there are symptoms related to the gallbladder, consider ultrasound. No pancreatic inflammation. Spleen not enlarged. ADRENALS, KIDNEYS, BLADDER, RETROPERITONEAL: Adrenals within normal limits. No hydronephrosis.. Symmetric renal enhancement. Nonspecific bilateral perinephric stranding. 7 mm hypodense left midpole renal lesion noted, too small to further characterize but possibly a cyst. Consistent with the [employer]'s Incidental Findings Committee white paper (J Am Abena Radiol 2018): Any incidental cystic renal lesion classified in this report as too small to characterize or simple appearing is likely a benign cyst. No follow-up imaging is neccesary for these lesions per consensus recommendations based on imaging criteria if there is average risk of renal malignancy. The urinary bladder appears slightly thick-walled anteriorly. This could be correlated with any symptoms but may be artifactual. Mildly enlarged prostate impressing into the base of the bladder. Clinical follow-up is advised. There is para-aortic retroperitoneal lymphadenopathy with lymph nodes measuring up to 3.7 cm in maximal dimension. MUSCULOSKELETAL: Degenerative changes of the spine and pelvis are noted. No suspicious bone lesion is seen. IMPRESSION: Prior images have not been made available for direct comparison. Compared to the prior report there appears to be significant worsening. There is a complex 7.4cm collection with bubbles of gas along the gastrohepatic ligament worrisome for a contained perforation of the subdiaphragmatic gastrohepatic junction. No free intraperitoneal air is seen otherwise. There is scattered ascites. This and other gastrointestinal findings to be correlated clinically are discussed above in detail. There are innumerable hepatic lesions consistent with metastatic disease. There are soft tissue nodules within the abdomen and pelvis worrisome for metastatic disease. There is retroperitoneal lymphadenopathy worrisome for metastatic disease. There are innumerable pulmonary nodules at the visualized lung bases consistent with extensive pulmonary metastatic disease. Other findings discussed above in detail. Clinical correlation is advised. Consider whole body PET-CT.] MICROBIOLOGY: Please see below. ASSESSMENT: [This is a 65 y/o male with a pmh of HFrEF, a-fib, htn, gerd and esophageal cancer who presented to our ed on the night of 01/29 with a cc of abdominal and back pain increasing over the last 3-4 days. Upon workup in the emergency department, ct imaging showed an enclosed esophageal perforation as well as metastasis to the lungs and liver that was not on pet scan just a few weeks ago. Upon receiving news of these findings, patient and his have made decision to pursue DIGITAL ACCOUNT MANAGER status.]. . PLAN: 1. [Metastatic disease - Patient has decided to pursue field operations manager status. MOLST form to be filled out - Pain, nausea control - Patient wishes to have iv abx - will begin zosyn q6h - Patient wishes to eat and drink - will begin diet order - Hospice consult placed - stop all oral meds - admit to med surg for pain/nausea control and hospice consult]. Vital Signs Vital Signs Date Time Temp Pulse Resp B/P (MAP) Pulse Ox O2 Delivery O2 Flow Rate FiO2 01/30/21 02:06 01/30/21 02:06 98.8 71 16 99 Room Air Laboratory Data Labs 24H Laboratory Tests 2 01/29/21 21:30: Immature Granulocyte % (Auto) 0.5, Neutrophils (%) (Auto) 94.4H, Lymphocytes (%) (Auto) 1.7L, Monocytes (%) (Auto) 3.0, Eosinophils (%) (Auto) 0.2, Basophils (%) (Auto) 0.2, Neutrophils # (Auto) 15.7H, Lymphocytes # (Auto) 0.3L, Monocytes # (Auto) 0.5, Eosinophils # (Auto) 0.0, Basophils # (Auto) 0.0, Nucleated Red Blood Cells % (auto) 0.0, Lactic Acid Level 3.0*H, Total Bilirubin 0.7, Direct Bilirubin 0.4H, Aspartate Amino Transf (AST/SGOT) 84H, Alanine Aminotransferase (ALT/SGPT) 48, Alkaline Phosphatase 964H, Total Protein 7.7, Albumin 2.7L, Albumin/Globulin Ratio 0.5, Lipase 45L 01/29/21 21:36: POC Glucose (Misc Panel) 124H, POC Sodium (Misc Panel) 131L, POC Potassium (Misc Panel) 4.6, POC Chloride (Misc Panel) 92L, POC Total CO2 (Misc Panel) 26.0, POC Blood Urea Nitrogen (Misc Panel 23, POC Ionized Calcium (Misc Panel) 3.6L, POC Creatinine (Misc Panel) 0.7, POC Hematocrit (Misc Panel) 33.0L 01/30/21 01:03: Urine Color OZIEL, Urine Appearance CLOUDYH, Urine pH 5.0, Urine Specific [place] 1.028, Urine Protein 2+H, Urine Glucose (UA) NEGATIVE, Urine Ketones NEGATIVE, Urine Blood NEGATIVE, Urine Nitrite NEGATIVE, Urine Bilirubin 1+H, Urine Urobilinogen 4.0H, Urine Leukocyte Esterase NEGATIVE, Urine WBC (Auto) 2, Urine RBC (Auto) 0, Urine Hyaline Casts (Auto) 0, Urine Bacteria (Auto) NEGATIVE, Urine Squamous Epithelial Cells 0, Urine Mucus (Auto) LARGE, Urine Sperm (Auto) 01/30/21 01:56: Lactic Acid Followup at 4 Hours 2.4*H CBC/BMP Laboratory Tests 01/29/21 21:30 Microbiology Microbiology 01/29/21 Blood Culture, Received Pending 01/29/21 Blood Culture, Received Pending Home Medications Scheduled Apixaban (Eliquis) 5 Mg Tablet, 5 MG TF BID Atorvastatin Calcium (Atorvastatin Calcium) 10 Mg Tablet, 10 MG TF DAILY TAKES AT NOON Bethanechol Chloride (Bethanechol Chloride) 5 Mg Tablet, 5 MG TF QID Digoxin (Digoxin) 125 Mcg Tablet, 125 MCG PO DAILY TAKES AT NOON Ferrous Sulfate (Ferrous Sulfate) 220 Mg/5 Ml Solution, 5 ML TF DAILY Furosemide (Furosemide) 20 Mg Tablet, 20 MG TF BID Lansoprazole (Lansoprazole) 30 Mg Capsule.dr, 30 MG TF DAILY Lisinopril (Lisinopril) 2.5 Mg Tablet, 2.5 MG PO QHS Metoprolol Succinate (Metoprolol Succinate) 25 Mg Tab.er.24h, 6.25 ML FT QID Silodosin (Rapaflo) 4 Mg Capsule, 1 CAP TF DAILY Simethicone (Simethicone) 180 Mg Capsule, 1.8 ML TF QID Scheduled PRN Acetaminophen (M-Pap) 160 Mg/5 Ml Liquid, 20 ML PO Q8H PRN for PAIN LEVEL 1-5 Allergies Coded Allergies: No Known Drug Allergies (Verified Allergy, Unknown, 12/06/19) A-FIB/CHADSVASC A-FIB History Current/History of A-Fib/PAF?: Yes 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
[2021-01-30] MEDS ORDERED: FERR1ELX TF (04:28)
[2021-01-30] MEDS ORDERED: [UNRECOGNIZED DRUG - CODE] PO (04:28)
[2021-01-30] MEDS ORDERED: LANS30CA TF (04:28)
[2021-01-30 05:09] LABS: RSV AMPLIFICATION NEGATIVE (NEGATIVE)
[2021-01-30 06:33] VITALS: BP 122/66
[2021-01-30] MEDS ORDERED: PIPERACILLIN/TAZOBACTAM SOD 3.375 GM in D5W MINI-BAG PLUS 50 ML IV SCH (09:00)
[2021-01-30] MEDS ORDERED: FURO20TA2 TF (14:15)
[2021-01-30] MEDS ORDERED: MORP20SO3 PO (16:11)
[2021-01-30] MEDS ORDERED: HYOS125TA PO (16:11)
[2021-01-30] MEDS ORDERED: ATIV1TAB10 PO (16:11)
[2021-01-31] MEDS ORDERED: DRON2.5C11 PO (17:02)
--- NOTE | 2021-02-01 13:03 | DS.PDOC ---
Discharge Summary General Date of Admission Jan 30, 2021 at 03:30 Date of Discharge 01/30/21 Discharge Summary PROCEDURES PERFORMED DURING STAY: [None]. DISCHARGE DIAGNOSES: Esophageal perforation contained Metastatic esophageal cancer to lungs and liver Persistent lactic acidosis due to cancer COMPLICATIONS/CHIEF COMPLAINT: Esophageal Perforation. HOSPITAL COURSE: This is a 65 y/o male with a pmh of HFrEF, a-fib, htn, gerd and esophageal cancer who presented to our ED on the night of 01/29 with a cc of abdominal and back pain increasing over the last 3-4 days. Upon workup in the emergency department, ct imaging showed an enclosed esophageal perforation as well as metastasis to the lungs and liver that was not seen on pet scan just a few weeks ago. I discussed the prognosis and plans of treatment with Dr. Duran . As per Dr. Duran due to the presence of esophageal perforation patient is no longer a candidate for any kind of chemotherapy or immunotherapy. Upon receiving news of these findings, patient and his have made decision to pursue SWIMMER status. Hospice was consulted and patient was discharged with referral to home hospice. DISCHARGE MEDICATIONS: Please see below. ALLERGIES: Please see below. PHYSICAL EXAMINATION ON DISCHARGE: VITAL SIGNS: Please see below. GENERAL: Sitting up in bed in no acute distress HEENT: Normocephalic atraumatic NECK: Supple CARDIOVASCULAR EXAMINATION: S1-S2 regular, RESPIRATORY EXAMINATION: Clear to auscultation ABDOMINAL EXAMINATION: Tenderness in the epigastrium, bowel sounds present no rebound or guarding EXTREMITIES: Bilateral 1-2+ edema LABORATORY DATA: Please see below. PROGNOSIS: Poor ACTIVITY: [As tolerated]. DIET: As tolerated DISPOSITION: 01 Home, Self-Care. DISCHARGE INSTRUCTIONS: Follow-up with hospice DISCHARGE CONDITION: [Stable]. TIME SPENT ON DISCHARGE: 35 minutes. Vital Signs/I&Os Vital Signs Date Time Temp Pulse Resp B/P (MAP) Pulse Ox O2 Delivery O2 Flow Rate FiO2 01/30/21 11:53 18 01/30/21 06:33 97.6 87 122/66 (84) 97 Room Air Microbiology Microbiology 01/29/21 Blood Culture - Preliminary, Resulted No Growth after 48 hours. All Specime... 01/29/21 Blood Culture - Preliminary, Resulted No Growth after 48 hours. All Specime... Discharge Medications Scheduled Bethanechol Chloride (Bethanechol Chloride) 5 Mg Tablet, 5 MG TF QID, (Reported) Digoxin (Digoxin) 125 Mcg Tablet, 125 MCG PO DAILY, (Reported) TAKES AT NOON Ferrous Sulfate (Ferrous Sulfate) 220 Mg/5 Ml Solution, 5 ML TF DAILY, (Reported) Lansoprazole (Lansoprazole) 30 Mg Capsule.dr, 30 MG TF DAILY, (Reported) Metoprolol Succinate (Metoprolol Succinate) 25 Mg Tab.er.24h, 6.25 ML FT QID, (Reported) Silodosin (Rapaflo) 4 Mg Capsule, 1 CAP TF DAILY, (Reported) Simethicone (Simethicone) 180 Mg Capsule, 1.8 ML TF QID, (Reported) Scheduled PRN Acetaminophen (M-Pap) 160 Mg/5 Ml Liquid, 20 ML PO Q8H PRN for PAIN LEVEL 1-5, (Reported) Dronabinol (Dronabinol) 2.5 Mg Capsule, 2.5 MG PO BIDP PRN for cancer related Furosemide (Furosemide) 20 Mg Tablet, 20 MG TF DAILY PRN for swelling Hyoscyamine Sulfate (Hyoscyamine Sulfate) 0.125 Mg Tab.subl, 0.125 MG PO Q4HP PRN for TERMINAL SECRETIONS Use sublingually if unable to swallow Lorazepam (Ativan) 0.5 Mg Tablet, 0.5 MG PO Q4HP PRN for ANXIETY/AGITATION Use sublingually if unable to swallow Morphine Sulfate (Morphine Sulfate) 100 Mg/5 Ml Solution, 0.25-1 ML PO Q2H PRN for PAIN OR DYSPNEA Use sublingually if unable to swallow Allergies Coded Allergies: No Known Drug Allergies (Verified Allergy, Unknown, 12/06/19) MARIO STAUFFER MD Feb 01, 2021 13:03
== END 2021-01-30 15:49 | disposition home or self-care (01) | DRG 240 ==
LOC: M ED 20:33 → M ED INP 01-30 03:30
PROVIDERS: ADMIT General Practice; ATTEND General Practice
DX: C15.9 Malignant neoplasm of esophagus, unspecified (principal); K22.3 Perforation of esophagus; C78.01 Secondary malignant neoplasm of right lung; C78.02 Secondary malignant neoplasm of left lung; I48.91 Unspecified atrial fibrillation; C78.7 Secondary malignant neoplasm of liver and intrahepatic bile duct; Z93.1 Gastrostomy status; I10 Essential (primary) hypertension; K21.9 Gastro-esophageal reflux disease without esophagitis; Z51.5 Encounter for palliative care; Z79.899 Other long term (current) drug therapy